=== PATIENT | female | born 2000 | race Caucasian/White ===

== ENCOUNTER 2023-11-11 11:16 | Inpatient (IN) ==
[2023-11-11] MEDS ORDERED: LIDOCAINE 1% LOCAL 20 ML VIAL INFIL PRN (12:32)
[2023-11-11] MEDS ORDERED: OXYTOCIN 30 UNITS/NSS 30 UNITS/500 ML BAG IV PRN (12:32)
[2023-11-11] MEDS ORDERED: ACETAMINOPHEN 325 MG TAB PO PRN (12:32)
[2023-11-11 13:12] LABS: Hematocrit (blood only) 37.8 % (37.0-47.0); Hemoglobin 12.7 g/dl (12.0-16.0); Mean Corpuscular Hemoglobin 28.7 pg (25.0-34.0); Mean Corpuscular Hgb Conc 33.6 g/dL (32.0-36.0); Mean Corpuscular Volume 85.3 fL (80.0-100.0); Mean Platelet Volume 11.3 fL (9.4-12.4); Platelet Count 228 K/uL (130-400); RDW Coefficient of Variation 13.6 % (11.5-14.5); RDW Standard Deviation 42.1 fL (36.4-46.3); Red Blood Count 4.43 M/uL (4.20-5.40); White Blood Count 10.54 K/ul (4.8-10.8)
[2023-11-11] MEDS: DINOPROSTONE 10 MG INSERT PV ONE (15:33)
[2023-11-11] MEDS ORDERED: BUTORPHANOL TARTRATE 2 MG/ML VIAL IV PRN (15:35)
--- NOTE | 2023-11-11 15:41 | History & Physical Report ---
Date of Service November 11, 2023 Assessment & Plan (1) Post-term , 40-42 weeks of gestation: Plan: 23-year-old G1, P0 at 40 weeks and 1 day gestation, scheduled induction of labor, Vital signs stable afebrile, heart rate reassuring, GBS negative, Cervix unfavorable, Cervidil is placed for cervical ripening, Discussed what to expect, All questions were answered. Admission and Anticipated Discharge Date Admission Date: November 11, 2023 History of Present Illness Primary Care Provider: Eran Dickinson DO Patient is a 23-year-old G1, P0 at 40 weeks and 1 day gestation who was scheduled for induction of labor at term, Patient feels well, no complaints. She denies contractions, leakage of fluid, vaginal bleeding. She reports good movements. She denies headaches, change in her vision, nausea vomiting, epigastric or right upper quadrant pain. Her has been uncomplicated. She is on 25 mcg of levothyroxine, iron and vitamins. She is GBS negative. Allergies Allergy/AdvReac Type Severity Reaction Status Date / Time No Known Allergies Allergy Verified 12/28/22 08:04 Home Medications Medication Instructions Recorded Confirmed Type levothyroxine 25 mcg tablet 25 mcg PO DAILY #30 tabs 07/05/23 11/11/23 Rx ferrous sulfate 325 mg (65 mg 325 mg PO BID 11/11/23 11/11/23 History iron) tablet (iron) vit no.95-ferrous 1 tab PO DAILY 11/11/23 11/11/23 History fumarate 28 mg-folic acid 800 mcg tablet () Patient History Medical History Anemia Hypothyroidism Surgical History History of wisdom tooth extraction Family History Grandfather (Maternal) Diabetes Uncle Myocardial infarction Prostate cancer Grandmother (Maternal) Myocardial infarction Hypothyroidism Mother Hypothyroidism Denies family history of Ovarian cancer Breast cancer Lung cancer Colorectal cancer Stroke Social History Smoking Status: Never smoker Second Hand Exposure: No; Do You Dip or Chew Tobacco: No; Hx Alcohol Use: No Hx Substance Use: No Preferred Language: Congolese Communication Ability: Effective Visual Impairment: Limited Hearing Ability: Normal Manager Field Sales Required: No Beliefs That Will Affect Care: None marital status: Current Living Situation: Spouse current occupational status: employed 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 Review of Systems as per Subjective / HPI Physical Exam Constitutional: WD/WN, vitals as above well developed, well nourished and comfortable Gastrointestinal (Abdomen): normal bowel sounds, soft, nontender, no hepatosplenomegaly (Gravid) Genitourinary: normal external appearance OB Exam Abdomen: + vertex Manual OB Exam: + cervical dilation fingertip, + cervical effacement 40% and + station high (Posterior) OB Exam Monitor Tracing: + external FHT monitor used and + category I Results & Data Vital Signs (Past 12 Hours) Vital Signs Temp Pulse Resp BP 11/11/23 15:16 36.7 C 81 16 127/84 11/11/23 11:43 113 H 116/79 11/11/23 11:43 36.6 C 20 11/11/23 11:40 20 11/11/23 11:40 36.6 C 20 Laboratory Results Lab Results 11/11/23 Range/Units 12:47 WBC 10.54 (4.8-10.8) K/ul RBC 4.43 (4.20-5.40) M/uL Hgb 12.7 (12.0-16.0) g/dl Hct 37.8 (37.0-47.0) % MCV 85.3 (80.0-100.0) fL MCH 28.7 (25.0-34.0) pg MCHC 33.6 (32.0-36.0) g/dL RDW Std Deviation 42.1 (36.4-46.3) fL RDW Coeff of Angel 13.6 (11.5-14.5) % Plt Count 228 (130-400) K/uL MPV 11.3 (9.4-12.4) fL
--- NOTE | 2023-11-11 16:57 | Obstetrical Progress Note ---
Date of Service November 11, 2023 Assessment & Plan Admission and Anticipated Discharge Date Admission Date: November 11, 2023 Subjective Patient is reevaluated. She feels well, eating her dinner. Feels mild tightening but no pain FHR categ I [place] mild irregular contractions, patient does not feel them all Continue to monitor closely. Results & Data Vital Signs (Past 12 Hours) Vital Signs Temp Pulse Resp BP 11/11/23 15:16 36.7 C 81 16 127/84 11/11/23 11:43 113 H 116/79 11/11/23 11:43 36.6 C 20 11/11/23 11:40 20 11/11/23 11:40 36.6 C 20
--- NOTE | 2023-11-12 00:37 | Obstetrical Progress Note ---
Date of Service November 12, 2023 Assessment & Plan Admission and Anticipated Discharge Date Admission Date: November 11, 2023 Subjective Patient is on monitor, smiling, has no complaints FHR categ I [place] ctxs q 2-3 min Patient feels them as mild tightening, not painful Plan to remove Cervidil at 03:30 AM and start PO cytotec per contraction pattern Continue to monitor Results & Data Vital Signs (Past 12 Hours) Vital Signs Temp Pulse Resp BP 11/11/23 21:10 36.4 C L 80 18 110/63 11/11/23 15:16 36.7 C 81 16 127/84
[2023-11-12] MEDS: FERROUS SULFATE 325 MG TAB PO SCH (03:03)
--- OUTSIDE RECORDS SUMMARY | 2023-11-12 04:34 | External Medical Summary | Summary of Care ---
Author Name Unknown Organization [facility] Address [address] [place] [address] Phone [phone] Care Team Providers Care Dial Brusher Name Role Phone TeenaEran Primary Care Provider [phone] Reason for Visit * Reason Comments Return Visit Encounter Details Date Type Department Care Team ([facility] st Contact Info) Description 11/01/2023 8:45 AM EDT Office Visit Gynecology/Obstetric [facility] [address] [facility] [place] [address] Alejandra Reeves MD [address] [facility] [place] [id number] 38 weeks gestation of *; Encounter for supervision of normal first in third trimester; Hypothyroidism affecting in third trimester; Elevated liver enzymes; Antepartum anemia complicating Allergies No known active allergiesdocumented as of this encounter (statuses as of 11/01/2023) Medications Medication Sig Dispensed Refills Start Date End Date Status Levothyroxine Sodium 25 MCG Oral Tablet (Levoxyl) Take 1 Tablet by mouth daily first thing in the morning. (at least 30 min prior to breakfast or other meds) 0 Active 6.75-0.2 MG Oral Tablet Take by mouth. 0 Active Ferrous Sulfate 325 (65 Fe) MG Oral Tablet (Feosol)Indications:A ntepartum anemia complicating Take 1 Tablet by mouth in the morning and 1 Tablet before bedtime. 60 Tablet 2 09/20/2023 Active documented as of this encounter (statuses as of 11/01/2023) Active Problems Problem Noted Date Diagnosed Date Antepartum anemia complicating 024 Overview: Start iron 27w6d Elevated liver enzymes 2023 Overview: Bile acids 2.1 on 06/23 Pt saw hepatology 06/28. Per MFM Ask A Doc 06/30/23, no additional recommendations with normal bile acids. Hepatology plans to repeat monthly LFTs Hepatic Panel Results: Results for orders placed or performed in visit on 06/23/23 HEPATIC FUNCTION PANEL Result Value Ref Range Albumin 4.1 3.8 - 5.0 g/dL AST 64 (H) 10 - 35 U/L Alkaline Phosphatase 64 35 - 130 U/L ALT 94 (H) 10 - 35 U/L Bilirubin, Total 0.5 <=1.2 mg/dL Bilirubin, Direct <0.2 0.0 - 0.3 mg/dL Protein 6.6 6.0 - 8.3 g/dL Hepatic Panel Results: Results for orders placed or performed in visit on 09/13/23 HEPATIC FUNCTION PANEL Result Value Ref Range Albumin 3.7 (L) 3.8 - 5.0 g/dL AST 19 10 - 35 U/L Alkaline Phosphatase 106 35 - 130 U/L ALT 16 10 - 35 U/L Bilirubin, Total 0.6 <=1.2 mg/dL Bilirubin, Direct <0.2 0.0 - 0.3 mg/dL Protein 5.9 (L) 6.0 - 8.3 g/dL Hypothyroidism affecting 03/31/2023 Overview: On Levoxyl 25 mcg daily, managed by PCP TSH q trimester TSH Results: Lab Results Component Value Date/Time TSH - [facility] 1.88 08/16/2023 09:08 AM TSH - [facility] 1.93 05/26/2023 10:03 AM TSH - [facility] 1.98 03/30/2023 11:46 AM Supervision of normal first 03/31/2023 Estimated Date of Delivery Comme nts Yes 11/10/2023 Based on Ultraso und documented as of this encounter (statuses as of 11/01/2023) Immunizations Name Administration Dates Next Due TDAP (age 10 and older)(Boostrix) 08/16/2023 documented as of this encounter Social History Tobacco Use Types Packs/Day Years Used Date Smoking Tobacco: Never Smokeless Tobacco: Never Alcohol Use Standard Drinks/Week Comments Not Currently 0 (1 standard drink = 0.6 oz pur e alcohol) PHQ-2 Answer Date Recorded PHQ Adult Total Score 0 09/27/2023 Hunger Vital Sign Answer Date Recorded Within the past 12 months, y ou worried that your food would run out before you got the money to buy more. Never true 06/09/20 23 Within the past 12 months, t he food you bought just didn't last and you didn't have money to get more. Never true 06/09/2023 [place] Depression Scale Answer Date Recorded [place] Depression Scale Total 3 09/27/2023 The thought of harming myself has occurred to me . Never 09/27/2023 Estimated Date of Delivery Comme nts Yes 11/10/2023 Based on Ultraso und Sex and Gender Information Value Date Recorded Sex Assigned at Female 03/25/2023 11:22 AM EDT Gender Identity Female 03/25/2023 11:22 AM EDT Sexual Orientation Straight 03/25/2023 11 :22 AM EDT Job Start Date Occupation Industry Not on file Not on file Not on file documented as of this encounter Last Filed Vital Signs Vital Sign Reading Time Taken Comments Blood Pressure 118/86 11/01/2023 8:36 AM EDT Pulse - - Temperature - - Respiratory Rate - - Oxygen Saturation - - Inhaled Oxygen Concentration - - Weight 80.7 kg (178 lb) 11/01/2023 8:36 AM EDT Height 162.6 cm (5' 4") 11/01/2023 8:36 AM EDT Body Mass Index 30.55 11/01/2023 8:36 AM EDT documented in this encounter Progress Notes * Alejandra Reeves MD - 11/01/2023 8:45 AM EDT Patient is 23 year old at 38 5/7 weeks who presents for ANGEL visit Denies contractions, leaking of fluid, or vaginal bleeding. Noted good movement. +cramping, +BH Denies headache, blurry vision, RUQ or epigastric pain. Problem list reviewed BP 118/86 | Ht 1.626 m (5' 4") | Wt 80.7 kg (178 lb) | LMP 01/27/2023 (Exact Date) | BMI 30.55 kg/m | BSA 1.91 m FH: 38 FHT: 135 (high on abdomen) Unsure position with Leopolds Plan: Labor and preeclampsia warnings reviewed Flu vaccine already received Recommend delivery by 42 weeks-would like induction after RASTA. US for position RTC 1 weeks V Leandro HANLEY PhD documented in this encounter Nursing Notes * Jennifer Fry LPN - 11/01/2023 8:40 AM EDT 38w5d Popping sensation under right angel area over the weekend. documented in this encounter Plan of Treatment Upcoming Encounters Date Type Department Care Team (Late st Contact Info) Description 11/01/2023 9:15 AM EDT Imaging Radiology [facility] 2nd Floor, [place] [address] [place] [id number] 38 weeks gestation of 11/08/2023 8:45 AM EDT Office Visit Gynecology/Obstetric s [facility] [address] [place] [address] Lalo Morin MD [address] [place] [address] Pending Results Name Type Priority Associated Diagnoses Date /Time US PREG LIMITED 1 OR MORE FETUSES Medical Imaging Routine 38 weeks gestation of 11/01/2023 9:00 AM EDT Scheduled Orders Name Type Priority Associated Diagnoses Orde r Schedule US PREG LIMITED 1 OR MORE FETUSES Medical Imaging Routine 38 weeks gestation of Expected: 11/01/2023, Expires: 11/30/2024 Health Maintenance Due Date Last Done Comments GARDASIL-HPV IMMUNIZATION SERIES (1 - 3-dose series) 2013 Hepatitis B (1 of 3 - 19+ 3-dose series) 2017 COVID-19 Vaccine ( season) 2023 11/05/2021, 12/12/2020, 11/21/2020 Influenza Vaccine (FLU shot) (Season Ended) 2024 Depression Screening 09/26/2024 09/27/2023 TSH 10/17/2024 10/18/2023, 07/27, 05/26/2023, Additional history exists Pap Smear 03/30/2026 03/30/2023 DTaP,Tdap,and Td Vaccines (2 - Td or Tdap) 08/16/2033 08/16/2023 Gonorrhea / Chlamydia Screen Discontinued 03/30/2023 MENINGOCOCCAL (MENACTRA/MENVEO) Aged Out No longer eligible based on patient's age to complete this topic Pneumococcal Vaccine: Pediatrics (0 to 5 Years) and At-Risk Patients (6 to 64 Years) Aged Out No longer eligible based on patient's age to complete this topic documented as of this encounter Medical Devices Not on filedocumented as of this encounter Visit Diagnoses Diagnosis 38 weeks gestation of - Primary state, incidental Encounter for supervision of normal first in third trimester Supervision of normal first Hypothyroidism affecting in third trimester Elevated liver enzymes Nonspecific elevation of levels of transaminase or lactic acid dehydrogenase (LDH) Antepartum anemia complicating Anemia, antepartum 38 weeks gestation of state, incidental documented in this encounter Care Teams Dial Brusher Relationship Specialty Start Date End Date Eran Dickinson DO [address] [place] [address] PCP - General Family Medicine 12/28/22 documented as of this encounter
--- OUTSIDE RECORDS SUMMARY | 2023-11-12 04:34 | External Medical Summary | Summary of Care ---
Author Name Unknown Organization [facility] Address [address] [place] [address] Phone [phone] Care Team Providers Care Starch Factory Laborer Name Role Phone TeenaEran Primary Care Provider [phone] Reason for Visit * Reason Comments Return Visit Encounter Details Date Type Department Care Team ([facility] st Contact Info) Description 10/25/2023 8:45 AM EDT Office Visit Gynecology/Obstetric s Nory Maier [address] [place] [address] Estela Sue CRNP [address] [facility] [address] Encounter for supervision of normal first in third trimester*; Hypothyroidism affecting in third trimester; Elevated liver enzymes; Antepartum anemia complicating Allergies No known active allergiesdocumented as of this encounter (statuses as of 10/25/2023) Medications Medication Sig Dispensed Refills Start Date [...] as of this encounter (statuses as of 10/25/2023) Active Problems Problem Noted Date Diagnosed Date [...] as of this encounter (statuses as of 10/25/2023) Immunizations Name Administration Dates Next Due TDAP [...] money to get more. Never true 06/09/2023 [place] Depression Scale Answer Date Recorded [place] Depression Scale Total 3 09/27/2023 The thought [...] Sign Reading Time Taken Comments Blood Pressure 104/68 10/25/2023 8:37 AM EDT Pulse - - Temperature - - Respiratory Rate - - Oxygen Saturation - - Inhaled Oxygen Concentration - - Weight 80.3 kg (177 lb) 10/25/2023 8:37 AM EDT Height - - Body Mass Index 30.38 09/13/2023 8:51 AM EST documented in this encounter Progress Notes * Estela Sue CRNP - 10/25/2023 8:40 AM EDT 37w5d Doing well, baby is active. Denies regular contractions, leaking/bleeding. GBS swab negative. 1 week return NORMAN Machado * Gaye Greer LPN - 10/25/2023 8:37 AM EDT 37w5d Denies vaginal bleeding/rom + movement No new concerns documented in this encounter Plan of Treatment Upcoming Encounters Date Type Department Care Team (Late st Contact Info) Description 11/01/2023 8:45 AM EDT Office Visit Gynecology/Obstetrics [facility] [address] [facility] [place] [address] Alejandra Reeves MD [address] [place] [address] 11/08/2023 8:45 AM EDT Office Visit Gynecology/Obstetrics [facility] [address] [place] [address] Lalo Morin MD [address] [facility] [address] Health Maintenance Due Date Last Done Comments GARDASIL-HPV IMMUNIZATION SERIES (1 - 3-dose series) 2013 Hepatitis B (1 of 3 - 19+ 3-dose series) 2017 COVID-19 Vaccine (2022- season) 2023 11/05/2021, 12/12/2020, 11/21/2020 Influenza Vaccine [...] as of this encounter Visit Diagnoses Diagnosis Encounter for supervision of normal first in third trimester- Primary Supervision of normal first Hypothyroidism affecting in third trimester Elevated liver enzymes Nonspecific elevation of levels of transaminase or lactic acid dehydrogenase (LDH) Antepartum anemia complicating Anemia, antepartum documented in this encounter Care Teams Starch Factory Laborer Relationship Specialty Start Date End Date Eran Dickinson DO [address] [place] [address] PCP - General Family Medicine 12/28/22 documented as of this encounter
--- OUTSIDE RECORDS SUMMARY | 2023-11-12 04:34 | External Medical Summary ---
Author Name Unknown Address Unknown Organization [id number]:[facility] [address] [place] [address] Laboratory Report Ordering Provider Test Date Status REAL HERNANDEZ 10/18/2023 08:52:47 Final Observation Date Value Abnormality Reference (Units ) Status Albumin 10/18/2023 08:52:47 3.7 Below low normal 3.8-5.0 (g/dL) Final AST (Aspartate aminotransferase) 10/18/2023 08:52:47 19 10-35 (U/L) Final Alk Phos 10/18/2023 08:52:47 169 Above high normal 35-130 (U/L) Final ALT (Alanine aminotransferase) 10/18/2023 08:52:47 12 10-35 (U/L) Final Bilirubin, Total 10/18/2023 08:52:47 0.8 <=1.2 (mg/dL) Final Bilirubin, Direct 10/18/2023 08:52:47 <0.2 0.0-0.3 (mg/dL) Final Protein 10/18/2023 08:52:47 6.0 6.0-8.3 (g/dL) Final Performing Location [facility] [address] - [address] [place] [address]
--- OUTSIDE RECORDS SUMMARY | 2023-11-12 04:34 | External Medical Summary ---
Author Name Unknown Address Unknown Organization [id number]:[facility] - [facility] [address] [facility] [address] [facility] [address] Laboratory Report Ordering Provider Test Date Status REAL HERNANDEZ 10/18/2023 08:57:47 Final Observation Date Value Abnormality Reference (Units ) Status Streptococcus agalactiae DNA [Presence] in Specimen by GÓMEZ with probe detection 10/18/2023 08:57:47 Negative Negative Final No Group B Streptococcus det ected by culture-enhanced PCR (amplified probe).
The collection of vaginal/rectal swab specimen combinations (FDA approved specimen type) is optimal for the detection of Group B Streptococcus. Single source collection (vaginal only or rectal only) or alternate specimen sources may lead to false negative results. Performing Location [facility] - [address] [place] [address]
--- OUTSIDE RECORDS SUMMARY | 2023-11-12 04:34 | External Medical Summary | Summary of Care ---
Author Name Unknown Organization [facility] Address [address] [place] [address] Phone [phone] Care Team Providers Care Vp Client Services Name Role Phone Eran Dickinson Primary Care Provider [phone] Reason for Visit * Reason Comments Outpatient Testing Encounter Details Date Type Department Care Team ([facility] st Contact Info) Description 10/18/2023 9:40 AM EDT Laboratory Laboratory, [facility] [address] [place] [id number] [facility] [address] [place] [address] Elevated liver enzymes Allergies No known active allergiesdocumented as of this encounter (statuses as of 10/18/2023) Medications Medication Sig Dispensed Refills Start Date [...] as of this encounter (statuses as of 10/18/2023) Active Problems Problem Noted Date Diagnosed Date [...] as of this encounter (statuses as of 10/18/2023) Immunizations Name Administration Dates Next Due TDAP [...] money to get more. Never true 06/09/2023 [place] Depression Scale Answer Date Recorded [place] Depression Scale Total 3 09/27/2023 The thought [...] on file documented as of this encounter Plan of Treatment Upcoming Encounters Date Type Department Care Team (Late st Contact Info) Description 10/25/2023 8:45 AM EDT Office Visit Gynecology/Obstetrics [facility] [address] [place] [address] Estela Sue CRNP [address] [place] [address] 11/01/2023 8:45 AM EDT Office Visit Gynecology/Obstetrics [facility] [address] [place] [address] Alejandra Reeves MD [address] [place] [address] 11/08/2023 8:45 AM EDT Office Visit Gynecology/Obstetrics [facility] [address] [place] [address] Lalo Morin MD [address] [place] [address] Pending Results Name Type Priority Associated Diagnoses Date /Time TSH WITH FREE T4 IF INDICATED Lab Routine 10/18/2023 8:52 AM EDT HEPATIC FUNCTION PANEL Lab Routine Elevated liver enzymes 10/18/2023 8:52 AM EDT Health Maintenance Due Date Last Done Comments GARDASIL-HPV IMMUNIZATION SERIES (1 - 3-dose series) 2013 Hepatitis B (1 of 3 - 19+ 3-dose series) 2017 COVID-19 Vaccine (4 - 2022-2 4 season) 2023 11/05/2021, 12/12/2020, 11/21/2020 Influenza Vaccine (FLU shot) (#1) 2023 TSH 08/16/2024 08/16/2023, 05/26/2023, 03/30/2023 Depression Screening 09/26/2024 09/27/2023 Pap Smear 03/30/2026 03/30/2023 DTaP,Tdap,and Td Vaccines [...] as of this encounter Visit Diagnoses Diagnosis Elevated liver enzymes Nonspecific elevation of levels of transaminase or lactic acid dehydrogenase (LDH) documented in this encounter Care Teams Vp Client Services Relationship Specialty Start Date End Date Eran Dickinson DO [address] [facility] [place] [address] PCP - General Family Medicine 12/28/22 documented as of this encounter
--- OUTSIDE RECORDS SUMMARY | 2023-11-12 04:34 | External Medical Summary | Summary of Care ---
Author Name Unknown Organization [facility] Address [address] [place] [address] Phone [phone] Care Team Providers Care Shovel Handle Assembler Name Role Phone TeenaEran Primary Care Provider Reason for Visit * Reason Comments Return Visit Encounter Details Date Type Department Care Team ([facility] st Contact Info) Description 10/18/2023 8:30 AM EDT Office Visit Gynecology/Obstetric s Nory Maier [address] [place] [address] Estela Sue CRNP [address] [facility] [place] [address] Encounter for supervision of normal first in [...] money to get more. Never true 06/09/2023 [place] Depression Scale Answer Date Recorded [place] Depression Scale Total 3 09/27/2023 The thought [...] Sign Reading Time Taken Comments Blood Pressure 108/70 10/18/2023 8:26 AM EDT Pulse - - Temperature - - Respiratory Rate - - Oxygen Saturation - - Inhaled Oxygen Concentration - - Weight 79.1 kg (174 lb 6.4 oz) 10/18/2023 8:26 A M EDT Height - - Body Mass Index 29.94 09/13/2023 8:51 AM EST documented in this encounter Progress Notes * Estela Sue CRNP - 10/18/2023 8:37 AM EDT 36w5d Baby active, reviewed FKC. No regular ctx, leaking/bleeding. Discussed induction by 42 weeks. Will recheck LFTs today, last done a month ago. GBS collected, 1 week return Subwarehouse Supervisor Documentation Provider requested personal lines appraiser. Name of personal lines appraiser: NORMAN Mendoza LPN * Gaye Greer LPN - 10/18/2023 8:26 AM EDT 36w5d Denies vaginal bleeding/rom + movement documented in this encounter Plan of Treatment Upcoming Encounters Date Type Department Care Team (Late st Contact Info) Description 10/18/2023 9:40 AM EDT [facility] [address] [place] [id number] MaierMarie demarco [address] [place] [address] Elevated liver enzymes 10/25/2023 8:45 AM EDT Office Visit Gynecology/Obstetric s Kirkfady Maier [address] [place] [address] Estela Sue CRNP [address] [place] [address] 11/01/2023 8:45 AM EDT Office Visit Gynecology/Obstetric s Nory Bustoss [address] [place] [address] Alejandra Reeves MD [address] [place] [address] [place] [address] 11/08/2023 8:45 AM EDT Office Visit Gynecology/Obstetric s Nory Bustoss [address] [place] [address] Lalo Morin MD [address] [place] [address] Pending Results Name Type Priority Associated Diagnoses Date /Time GROUP B STREP CULTURE/PCR Lab Routine Encounter for supervision of normal first in third trimester 10/18/2023 8:57 AM EDT HEPATIC FUNCTION PANEL Lab Routine Elevated liver enzymes 10/18/2023 8:52 AM EDT Scheduled Orders Name Type Priority Associated Diagnoses Orde r Schedule HEPATIC FUNCTION PANEL Lab Routine Elevated liver enzymes Expected: 10/18/2023, Expires: 10/17/2024 Health Maintenance Due Date Last Done Comments [...] dehydrogenase (LDH) Antepartum anemia complicating Anemia, antepartum Elevated liver enzymes Nonspecific elevation of levels of transaminase or lactic acid dehydrogenase (LDH) documented in this encounter Care Teams Shovel Handle Assembler Relationship Specialty Start Date End Date Eran Dickinson DO [address] [place] [address] PCP - General Family Medicine 12/28/22 documented as of this encounter
--- OUTSIDE RECORDS SUMMARY | 2023-11-12 04:34 | External Medical Summary | Summary of Care ---
Author Name Unknown Organization [facility] Address [address] [place] [address] Phone [phone] Care Team Providers Care Operations Label Clerk Name Role Phone Eran Dickinson Primary Care Provider [phone] Encounter Details Date Type Department Care Team ([facility] Contact Info) Description 11/01/2023 Telephone Gynecology/Obstetrics, [address] [place] [address] Lalo Morin MD [address] [place] [address] Allergies No known active allergiesdocumented as of [...] money to get more. Never true 06/09/2023 [place] Depression Scale Answer Date Recorded [place] Depression Scale Total 3 09/27/2023 The thought [...] on file documented as of this encounter Miscellaneous Notes * Telephone Encounter - Nora Murrell RN - 11/01/2023 10:21 AM EDT T/C from pt stating that she is scheduled for IOL at [facility] on 11/11/2023. Pt asking if there is any availability for IOL sooner. Please call pt to assist. Reagan'nilam pt. documented in this encounter Plan of Treatment Upcoming Encounters Date Type Department Care Team (Late st Contact Info) Description 11/08/2023 8:45 AM EDT Office Visit Gynecology/Obstetrics Nory Maier [address] [place] [address] Lalo Morin MD [address] [place] [address] Health Maintenance Due Date Last Done Comments GARDASIL-HPV IMMUNIZATION SERIES (1 - 3-dose series) 2013 Hepatitis B (1 of 3 - 19+ 3-dose series) 2017 COVID-19 Vaccine (2022-24 season) 2023 11/05/2021, 12/12/2020, 11/21/2020 Influenza Vaccine [...] Not on filedocumented as of this encounter Care Teams Operations Label Clerk Relationship Specialty Start Date End Date Eran Dickinson DO [address] [place] [address] PCP - General Family Medicine 12/28/22 documented as of this encounter
--- OUTSIDE RECORDS SUMMARY | 2023-11-12 04:34 | External Medical Summary | Summary of Care ---
Author Name Unknown Organization [facility] Address [address] [place] [address] Phone [phone] Care Team Providers Care Broach Operator Name Role Phone TeenaEran Primary Care Provider [phone] Reason for Visit * Reason Comments Return Visit Encounter Details Date Type Department Care Team (Latest Contact Info) Description 11/08/2023 8:45 AM EDT Office Visit Gynecology/Obstetri [facility] [address] [place] [address] Lalo Morin MD [address] [place] [address] Hypothyroidism affecting in third trimester*; Encounter for supervision of normal first in third trimester; Elevated liver enzymes; Antepartum anemia complicating Allergies No known active allergiesdocumented as of this encounter (statuses as of 11/08/2023) Medications Medication Sig Dispensed Refills Start Date [...] as of this encounter (statuses as of 11/08/2023) Active Problems Problem Noted Date Diagnosed Date [...] as of this encounter (statuses as of 11/08/2023) Immunizations Name Administration Dates Next Due TDAP [...] money to get more. Never true 06/09/2023 [place] Depression Scale Answer Date Recorded [place] Depression Scale Total 3 09/27/2023 The thought [...] Sign Reading Time Taken Comments Blood Pressure 110/78 11/08/2023 8:40 AM EDT Pulse - - Temperature - - Respiratory Rate - - Oxygen Saturation - - Inhaled Oxygen Concentration - - Weight 79.8 kg (176 lb) 11/08/2023 8:40 AM EDT Height 162.6 cm (5' 4") 11/08/2023 8:40 AM EDT Body Mass Index 30.21 11/08/2023 8:40 AM EDT documented in this encounter Progress Notes * Lalo Morin MD - 11/08/2023 1:47 PM EDT Pt doing well No complaints documented in this encounter Nursing Notes * Jennifer Fry LPN - 11/08/2023 8:43 AM EDT 39w5d IOL 11/10, baby vertex on US 10/31. Denies concerns today. documented in this encounter Plan of Treatment Health Maintenance Due Date Last Done Comments [...] as of this encounter Visit Diagnoses Diagnosis Hypothyroidism affecting in third trimester- Primary Encounter for supervision of normal first in third trimester Supervision of normal first Elevated liver enzymes Nonspecific elevation of levels of transaminase or lactic acid dehydrogenase (LDH) Antepartum anemia complicating Anemia, antepartum documented in this encounter Care Teams Broach Operator Relationship Specialty Start Date End Date Eran Dickinson DO [address] [facility] [place] [address] PCP - General Family Medicine 12/28/22 documented as of this encounter
--- OUTSIDE RECORDS SUMMARY | 2023-11-12 04:34 | External Medical Summary | Summary of Care ---
Author Name Unknown Organization [facility] Address [address] [place] [address] Phone [phone] Care Team Providers Care Airport Location Manager Name Role Phone TeenaEran Primary Care Provider [phone] Reason for Visit * Reason Comments Return Visit Encounter Details Date Type Department Care Team ([facility] st Contact Info) Description 11/01/2023 8:45 AM EDT Office Visit Gynecology/Obstetric [facility] [address] [facility] [place] [address] Alejandra Reeves MD [address] [facility] [place] [id number] 38 weeks gestation of *; Encounter for [...] money to get more. Never true 06/09/2023 [place] Depression Scale Answer Date Recorded [place] Depression Scale Total 3 09/27/2023 The thought [...] Description 11/01/2023 9:15 AM EDT Imaging Radiology [facility] 2nd [facility] [address] [facility] [place] [address] 11/08/2023 8:45 AM EDT Office Visit Gynecology/Obstetrics [facility] [address] [facility] [place] [address] Lalo Morin MD [address] [facility] [place] [address] Scheduled Orders Name Type Priority Associated Diagnoses [...] antepartum documented in this encounter Care Teams Airport Location Manager Relationship Specialty Start Date End Date Eran Dickinson DO [address] [place] [address] PCP - General Family Medicine 12/28/22 documented as of this encounter
--- OUTSIDE RECORDS SUMMARY | 2023-11-12 04:34 | External Medical Summary | Summary of Care ---
Author Name Unknown Organization [facility] Address [address] [place] [address] Phone [phone] Care Team Providers Care Screen Printing Machine Operator Name Role Phone Eran Dickinson Primary Care Provider [phone] Encounter Details Date Type Department Care Team ([facility] Contact Info) Description 11/01/2023 Telephone Gynecology/Obstetrics, [address] [place] [address] Lalo Morin MD [address] [facility] [place] [address] Allergies No known active allergiesdocumented as of [...] money to get more. Never true 06/09/2023 [place] Depression Scale Answer Date Recorded [place] Depression Scale Total 3 09/27/2023 The thought [...] encounter Miscellaneous Notes * Telephone Encounter - Michelle Huff RN - 11/01/2023 11:11 AM EDT I called L&D and they said the soonest they would have would be the day before 11/09. Spoke withpt. She desires to call her and see if they want to change to there. I advised to pt that this may not be open when we call back and that we still have her on for 11/10. Pt aware and still desires to call back with decision. * Telephone Encounter - Nora Murrell RN - 11/01/2023 10:21 AM EDT T/C from pt stating that she is scheduled for IOL at [facility] on 11/11/2023. Pt asking if there is any availability for IOL sooner. Please call pt to assist. Reagan's pt. documented in this encounter Plan of Treatment Upcoming Encounters Date Type Department Care Team (Late st Contact Info) Description 11/08/2023 8:45 AM EDT Office Visit Gynecology/Obstetrics Nory Maier [address] [place] [address] Lalo Morin MD [address] [place] [address] Health Maintenance Due Date Last Done Comments [...] filedocumented as of this encounter Care Teams Screen Printing Machine Operator Relationship Specialty Start Date End Date Eran Dickinson DO [address] [facility] [place] [address] PCP - General Family Medicine 12/28/22 documented as of this encounter
--- OUTSIDE RECORDS SUMMARY | 2023-11-12 04:34 | External Medical Summary ---
Author Name Unknown Address Unknown Organization [id number]:LABORATORY [facility] - [address] [place] [address] Laboratory Report Ordering Provider Test Date Status THU ASKEW 10/18/2023 08:52:47 Final Observation Date Value Abnormality Reference (Units ) Status TSH 10/18/2023 08:52:47 1.72 0.27-4.20 (uIU/mL) Final Performing Location LABORATORY C - [address] [place] [address]
--- OUTSIDE RECORDS SUMMARY | 2023-11-12 04:34 | External Medical Summary | Summary of Care ---
Author Name Unknown Organization [facility] Address [address] [place] [address] Phone [phone] Care Team Providers Care Community Engagement Manager Name Role Phone TeenaEran Primary Care Provider [phone] Reason for Visit * Reason Comments Return Visit Encounter Details Date Type Department Care Team ([facility] st Contact Info) Description 10/18/2023 8:30 AM EDT Office Visit Gynecology/Obstetric s Nory Maier [address] [place] [address] Estela Sue CRNP [address] [facility] [place] [address] Encounter for supervision of normal first in [...] money to get more. Never true 06/09/2023 [place] Depression Scale Answer Date Recorded [place] Depression Scale Total 3 09/27/2023 The thought [...] month ago. GBS collected, 1 week return Broadcast Checker Documentation Provider requested supervisor coffee. Name of supervisor coffee: NORMAN Mendoza LPN * Gaye Greer LPN - 10/18/2023 8:26 AM EDT 36w5d Denies vaginal bleeding/rom + movement documented in this encounter Plan of Treatment Upcoming Encounters Date Type Department Care Team (Late st Contact Info) Description 10/18/2023 9:40 AM EDT Laboratory Laboratory, N[facility] [address] [place] [phone] MaierMarie demarco [address] [place] [address] Elevated liver enzymes 10/25/2023 8:45 AM EDT Office Visit Gynecology/Obstetric Kirkfady Maier [address] [place] [address] Estela Sue CRNP [address] [place] [address] 11/01/2023 8:45 AM EDT Office Visit Gynecology/Obstetric s Nory Bustoss [address] [place] [address] Alejandra Reeves MD [address] [place] [address] [place] [address] 11/08/2023 8:45 AM EDT Office Visit Gynecology/Obstetric nilam Bustoss [address] [place] [address] Lalo Morin MD [address] [place] [address] Pending Results Name Type Priority Associated Diagnoses Date /Time HEPATIC FUNCTION PANEL Lab Routine Elevated liver enzymes 10/18/2023 8:52 AM EDT Scheduled Orders Name Type Priority Associated Diagnoses Orde r Schedule GROUP B STREP CULTURE/PCR Lab Routine Encounter for supervision of normal first in third trimester Ordered: 10/18/2023 HEPATIC FUNCTION PANEL Lab Routine Elevated liver [...] (LDH) documented in this encounter Care Teams Community Engagement Manager Relationship Specialty Start Date End Date Eran Dickinson DO [address] [place] [address] PCP - General Family Medicine 12/28/22 documented as of this encounter
--- OUTSIDE RECORDS SUMMARY | 2023-11-12 04:35 | External Medical Summary | Summary of Care ---
Author Name Unknown Organization [facility] Address [address] [place] [address] Phone [phone] Care Team Providers Care Retort Kiln Burner Name Role Phone TeenaEran Primary Care Provider [phone] Reason for Visit * Reason Onset Date Comments Test Results 08/17/2023 Encounter Details Date Type Department Care Team ([facility] Contact Info) Description 08/17/2023 Telephone Gynecology/Obstetrics [facility] [address] [facility] [place] [address] Estela Sue CRNP [address] [facility] [address] Test Results Allergies No known active allergiesdocumented as of this encounter (statuses as of 09/20/2023) Medications Medication Sig Dispensed Refills Start Date [...] and 1 Tablet before bedtime. 60 Tablet 3 08/17/2023 Active documented as of this encounter (statuses as of 09/20/2023) Active Problems Problem Noted Date Diagnosed Date [...] mg/dL Protein 6.6 6.0 - 8.3 g/dL Hypothyroidism affecting 03/31/2023 Overview: On Levoxyl 25 mcg daily, managed by PCP TSH q trimester TSH Results: Lab Results Component Value Date/Time TSH - [facility] 1.93 05/26/2023 10:03 AM TSH - [facility] 1.98 03/30/2023 11:46 AM Supervision of normal first 03/31/2023 Estimated Date of Delivery Comme nts Yes 11/10/2023 Based on Ultraso und documented as of this encounter (statuses as of 09/20/2023) Immunizations Name Administration Dates Next Due TDAP (age 10 and older)(Boostrix) 08/16/2023 documented as of this encounter Social History Tobacco Use Types Packs/Day Years Used Date Smoking Tobacco: Never Smokeless Tobacco: Never Alcohol Use Standard Drinks/Week Comments Not Currently 0 (1 standard drink = 0.6 oz pur e alcohol) Hunger Vital Sign Answer Date Recorded Within the past 12 months, y ou worried that your food would run out before you got the money to buy more. Never true 06/09/20 Within the past 12 months, t he food you bought just didn't last and you didn't have money to get more. Never true 06/09/2023 [place] Depression Scale Answer Date Recorded [place] Depression Scale Total 1 08/04/2023 The thought of harming myself has occurred to me . Never 08/04/2023 Estimated Date of Delivery Comme nts Yes [...] as of this encounter Miscellaneous Notes * Addendum Note - Rain Hylton CPhT - 09/20/2023 9:40 AM ESTAddended by: RAIN HYLTON on: 09/20/2023 09:40 AM Modules accepted: Orders * Telephone Encounter - Rain Hylton CPhT - 09/20/2023 9:40 AM EST Please [facility]route [facility] to [facility] [address] [place] [address] [place]. Pending Prescriptions: Disp Refills Ferrous Sulfate 325 (65 Fe) MG Oral Table*60 Tab*2 Sig: Take 1 Tablet by mouth in the morning and 1 Tablet before bedtime. Last Visit: 08/16/2023 (in office), Visit date not found (telemedicine) 09/27/2023 If no future appointments scheduled, and last appointment is greater than a year ago, please schedule patient for a follow-up appointment Last date the medication was ordered: 08/17/2023 Patient Phone Numbers Labs: Lab Results Component Value Date/Time CREAT 0.5 08/16/2023 09:08 AM TSH 1.88 08/16/2023 09:08 AM ALT 16 09/13/2023 09:32 AM * Telephone Encounter - Sandhya Malin LPN - 08/17/2023 12:22 PM EST Patient notified. Agreeable. * Telephone Encounter - Estela Sue CRNP - 08/17/2023 12:08 PM EST +anemia on CBC. Sending iron supplement to her pharmacy, take at least 1 hr apart from vitamin and food w/dairy. Can use OTC colace if constipation occurs. Will recheck CBC in 4 weeks to make sure it improves. Elevated 1 hr GTT, needs 3 hr testing. NORMAN Machado documented in this encounter Plan of Treatment Upcoming Encounters Date Type Department Care Team (Late st Contact Info) Description 09/27/2023 8:30 AM EST Office Visit Gynecology/Obstetrics [facility] [address] [place] [address] Estela Sue CRNP [address] [place] [address] 10/11/2023 8:30 AM EDT Office Visit Gynecology/Obstetrics [facility] [address] [place] [address] Caitlyn Marie, TORI, CNM [address] [place] [address] [place] [address] 10/18/2023 8:30 AM EDT Office [facility] [address] [place] [address] Estela Sue CRNP [address] [place] [address] 10/25/2023 8:45 AM EDT Office Visit Gynecology/Obstetrics [facility] [address] [place] [address] Estela Sue CRNP [address] [place] [address] 11/01/2023 8:45 AM EDT Office Visit Gynecology/Obstetrics [facility] [address] [facility] [place] [address] Alejandra Reeves MD [address] [place], [place] [address] [address] 11/08/2023 8:45 AM EDT Office Visit Gynecology/Obstetrics [facility] [address] [facility] [place] [address] Lalo Morin MD [address] [place] [address] Health Maintenance Due Date Last Done Comments Depression Screening 2010 GARDASIL-HPV IMMUNIZATION SERIES (1 - 3-dose series) 2013 Hepatitis B (1 of 3 - 19+ 3-dose series) 2017 COVID-19 Vaccine (4 - 2022-2 4 season) 2023 11/05/2021, 12/12/2020, 11/21/2020 Influenza Vaccine (FLU shot) (#1) 2023 TSH 08/16/2024 08/16/2023, 05/26/2023, 03/30/2023 Pap Smear 03/30/2026 03/30/2023 DTaP,Tdap,and Td Vaccines [...] as of this encounter Visit Diagnoses Diagnosis Antepartum anemia complicating - Primary Anemia, antepartum Elevated glucose tolerance test Impaired glucose tolerance test documented in this encounter Care Teams Retort Kiln Burner Relationship Specialty Start Date End Date Eran Dickinson DO [address] [place] [address] PCP - General Family Medicine 12/28/22 documented as of this encounter
--- OUTSIDE RECORDS SUMMARY | 2023-11-12 04:35 | External Medical Summary ---
Author Name Unknown Address Unknown Organization [id number]:LABORATORY [facility] 57[facility] - [address] [place] [address] Laboratory Report Ordering Provider Test Date Status HERNAN LOPEZ 09/13/2023 09:32:02 Final Observation Date Value Abnormality Reference (Units ) Status WBC, Total 09/13/2023 09:32:02 11.82 Above high normal 4 .00-10.80 (K/uL) Final RBC 09/13/2023 09:32:02 4.12 3.85-5.15 (M/uL) Final Hemoglobin 09/13/2023 09:32:02 11.9 Below low normal 12 .0-15.3 (g/dL) Final Anemia reflex testing trigge rs on a HGB < 12.0 for Females and HGB < 13.0 for Males in accordance with the WHO Anemia Guidelines
Anemia reflex testing triggers on a HGB < 12.0 for Females and HGB < 13.0 for Males in accordance with the WHO Anemia Guidelines HCT 09/13/2023 09:32:02 36.4 36.0-45.2 (%) Final MCV 09/13/2023 09:32:02 88.3 81.5-97.5 (fL) Final MCH 09/13/2023 09:32:02 28.9 27.0-34.0 (pg) Final MCHC 09/13/2023 09:32:02 32.7 32.0-36.0 (g/dL) Final RDW 09/13/2023 09:32:02 13.4 11.5-15.5 (%) Final Platelets 09/13/2023 09:32:02 266 140-400 (K /uL) Final MPV 09/13/2023 09:32:02 10.6 6.6-11.1 ( fL) Final Performing Location LABORATORY [facility] 0 - [address] [place] [address]
--- OUTSIDE RECORDS SUMMARY | 2023-11-12 04:35 | External Medical Summary ---
Author Name Unknown Address Unknown Organization [id number]:LABORATORY [facility] 57[facility] - [address] [place] [address] Laboratory Report Ordering Provider Test Date Status REAL HERNANDEZ 09/02/2023 12:40:01 Final Observation Date Value Abnormality Reference (Units ) Status Glucose [Mass/volume] in Serum or Plasma --3 hours post dose glucose 09/02/2023 12:40:01 139 70-139 (mg/dL) Final Performing Location LABORATORY [place] 57[address] 0 - [address] [place] [address]
--- OUTSIDE RECORDS SUMMARY | 2023-11-12 04:35 | External Medical Summary | Summary of Care ---
Author Name Unknown Organization [facility] Address [address] [place] [address] Phone [phone] Care Team Providers Care De Icer Element Winder Name Role Phone Teena Eran MELENDREZ Primary Care Provider [phone] Reason for Visit * Reason Comments Outpatient Testing Encounter Details Date Type Department Care Team (Late st Contact Info) Description 09/13/2023 9:40 AM EST Laboratory Laboratory, [facility] [address] [place] [phone] [facility] [address] [place] [address] Antepartum anemia complicating ; Elevated liver enzymes Allergies No known active allergiesdocumented as of this encounter (statuses as of 09/13/2023) Medications Medication Sig Dispensed Refills Start Date [...] as of this encounter (statuses as of 09/13/2023) Active Problems Problem Noted Date Diagnosed Date [...] as of this encounter (statuses as of 09/13/2023) Immunizations Name Administration Dates Next Due TDAP [...] money to get more. Never true 06/09/2023 [place] Depression Scale Answer Date Recorded [place] Depression Scale Total 1 08/04/2023 The thought [...] 09/27/2023 8:30 AM EST Office Visit Gynecology/Obstetrics [facility] [address] [place] [address] Estela Sue CRNP [address] [place] [address] 10/11/2023 8:30 AM EDT Office Visit Gynecology/Obstetrics [facility] [address] [place] [address] Caitlyn Marei, DNP, CNM [address] [facility] [place] [address] 10/18/2023 8:30 AM EDT Office Visit Gynecology/Obstetrics [facility] [address] [place] [address] Estela Sue CRNP [address] [place] [address] 10/25/2023 8:45 AM EDT Office Visit Gynecology/Obstetrics [facility] [address] [place] [address] Estela Sue CRNP [address] [place] [address] 11/01/2023 8:45 AM EDT Office Visit Gynecology/Obstetrics [facility] [address] [place] [address] Alejandra Reeves MD [address] [place] [address] 11/08/2023 8:45 AM EDT Office Visit Gynecology/Obstetrics [facility] [address] [place] [address] Lalo Morin MD [address] [place] [address] Pending Results Name Type Priority Associated Diagnoses Date /Time CBC WITH WBC DIFFERENTIAL AND ANEMIA REFLEX WORKUP Lab Routine Antepartum anemia complicating 09/13/2023 9:32 AM EST HEPATIC FUNCTION PANEL Lab Routine Elevated liver enzymes 09/13/2023 9:32 AM EST ANEMIA CBC Lab Routine Antepartum anemia complicating 09/13/2023 9:32 AM EST DIFFERENTIAL, AUTOMATED Lab Routine Antepartum anemia complicating 09/13/2023 9:32 AM EST ANEMIA REFLEX CHEMISTRY HOLD Lab Routine Antepartum anemia complicating 09/13/2023 9:32 AM EST Health Maintenance Due Date Last Done Comments [...] encounter Visit Diagnoses Diagnosis Antepartum anemia complicating Anemia, antepartum Elevated liver enzymes Nonspecific elevation of levels of transaminase or lactic acid dehydrogenase (LDH) documented in this encounter Care Teams De Icer Element Winder Relationship Specialty Start Date End Date Eran Dickinson DO [address] [facility] [place] [address] PCP - General Family Medicine 12/28/22 documented as of this encounter
--- OUTSIDE RECORDS SUMMARY | 2023-11-12 04:35 | External Medical Summary ---
Author Name Unknown Address Unknown Organization [facility] [address] [place] [address] Laboratory Report Ordering Provider Test Date Status REAL HERNANDEZ 09/02/2023 11:40:55 Final Observation Date Value Abnormality Reference (Units ) Status Glucose, 2-hr post glucose challenge 09/02/2023 11:40:55 155 Above high normal 70-154 (mg/dL) Final Performing Location LABORATORY [facility] 57-1 0 - [address] [place] [address]
--- OUTSIDE RECORDS SUMMARY | 2023-11-12 04:35 | External Medical Summary ---
Author Name Unknown Address Unknown Organization K0G:LAB[facility]ATORY [place] [address] - [address] [place] [address] Laboratory Report Ordering Provider Test Date Status JOHNHERNAN BERGER 09/13/2023 09:32:02 Final Observation Date Value Abnormality Reference (Units ) Status Nucleated erythrocytes/100 leukocytes [Ratio] in Blood by Automated count 09/13/2023 09:32:02 Final Performing Location LABORATORY [place] 57-[address] 0 - [address] [place] [address]
--- OUTSIDE RECORDS SUMMARY | 2023-11-12 04:35 | External Medical Summary ---
Author Name Unknown Address Unknown Organization K0G:LABORATORY [facility] 57-10 - [address] [place] [address] Laboratory Report Ordering Provider Test Date Status REAL HERNANDEZ 09/02/2023 10:40:58 Final Observation Date Value Abnormality Reference (Units ) Status Glucose [Mass/volume] in Serum or Plasma --1 hour post dose glucose 09/02/2023 10:40:58 164 70-179 (mg/dL) Final Performing Location LABORATORY [facility] 57-[address] 0 - [address] [place] [address]
--- OUTSIDE RECORDS SUMMARY | 2023-11-12 04:35 | External Medical Summary | Summary of Care ---
Author Name Unknown Organization [facility] Address [address] [place] [address] Phone [phone] Team Prov[address] Care [address] Project Manager Name Role Phone Teena Eran MELENDREZ Primary Care Provider [phone] Reason for Visit * Reason Comments Outpatient Testing Encounter Details Date Type Department Care Team (Late st Contact Info) Description 09/02/2023 9:30 AM EST Laboratory Laboratory, [facility] [address] [place] [phone] [facility] [address] [place] [address] Elevated glucose tolerance test Allergies No known active allergiesdocumented as of this encounter (statuses as of 09/02/2023) Medications Medication Sig Dispensed Refills Start Date [...] as of this encounter (statuses as of 09/02/2023) Active Problems Problem Noted Date Diagnosed Date [...] as of this encounter (statuses as of 09/02/2023) Immunizations Name Administration Dates Next Due TDAP [...] money to get more. Never true 06/09/2023 [place]vin Depression Scale Answer Date Recorded [place]vin Depression Scale Total 1 08/04/2023 The thought [...] Care Team (Late st Contact Info) Description 09/02/2023 1:30 PM EST Office Visit Gynecology/Obstetrics [facility] [address] [place] [address] Wilda Schmitz, MARGO [address] [place] [address] Arrived 09/13/2023 9:00 AM EST Office Visit Gynecology/Obstetrics [facility] [address] [place] [address] Lalo Morin MD [address] [place] [address] 09/27/2023 8:30 AM EST Office Visit Gynecology/Obstetrics [facility] [address] [place] [address] Estela Sue CRNP [address] [place] [address] 10/11/2023 8:30 AM EDT Office Visit Gynecology/Obstetrics [facility] [address] [place] [address] Caitlyn Marie DNP, MARGO [address] [place] [address] 10/18/2023 8:30 AM EDT Office Visit Gynecology/Obstetrics [facility] [address] [place] [address] Estela Sue CRNP [address] [place] [address] 10/25/2023 8:45 AM EDT Office Visit Gynecology/Obstetrics [facility] [address] [place] [address] Estela Sue CRNP [address] [place] [address] 11/01/2023 8:45 AM EDT Office Visit Gynecology/Obstetrics [facility] [address] [facility] [place] [address] Alejandra Reeves MD [address] [place], [place] [address] [address] 11/08/2023 8:45 AM EDT Office Visit Gynecology/Obstetrics [facility] [address] [place] [address] Lalo Morin MD [address] [place] [address] Pending Results Name Type Priority Associated Diagnoses Date /Time GESTATIONAL GLUCOSE TOLERANCE, 3 HOUR Lab Routine Elevated glucose tolerance test 09/02/2023 9:37 AM EST 100-G GESTATIONAL GLUCOSE, 3 HOUR Lab Routine Elevated glucose tolerance test 09/02/2023 12:40 PM EST Health Maintenance Due Date Last Done Comments Hepatitis B (1 of 3 - 3-dose series) 1998 GARDASIL-HPV IMMUNIZATION SERIES (1 - 2-dose series) 2009 Depression Screening 2010 COVID-19 Vaccine (2022-2 4 season) 2023 11/05/2021, 12/12/2020, 11/21/2020 Influenza [...] Not on filedocumented as of this encounter Procedures Procedure Name Priority Date/Time Associated Diagnosis Comments 100-G GESTATIONAL GLUCOSE, 2 HOUR Routine 09/02/2023 11:40 AM EST Elevated glucose tolerance test 100-G GESTATIONAL GLUCOSE, 1 HOUR Routine 09/02/2023 10:40 AM EST Elevated glucose tolerance test 100-G GESTATIONAL GLUCOSE, FASTING Routine 09/02/2023 9:37 AM EST Elevated glucose tolerance test documented in this encounter Results * (ABNORMAL) 100-G GESTATIONAL GLUCOSE, 2 HOUR (09/02/2023 11:40 AM EST) 100-g Gestational Glucose, 2 Hour 155(H) 70 - 154 mg/dL 09/02/2023 12:28 PM EST LAB[facility]AT[facility] [place] [facility] Blood Venous blood specimen / Unknown Venipuncture / Unknown 09/02/2023 11:40 AM EST 09/02/2023 11:40 AM EST Estela [facility] [place] 57-10 [address] [facility] [place] [address] * 100-G GESTATIONAL GLUCOSE, 1 HOUR (09/02/2023 10:40 AM EST) 100-g Gestational Glucose, 1 Hour 164 70 - 179 mg/dL 09/02/2023 11:17 AM EST [facility] [place] [facility]10 Blood Venous blood specimen / Unknown Venipuncture / Unknown 09/02/2023 10:40 AM EST 09/02/2023 10:40 AM EST Estela Mendez Linette [facility] [place] 57-[address] [place] [address] * 100-G GESTATIONAL GLUCOSE, FASTING (09/02/2023 9:37 AM EST) [facility] 100-g Gestational Glucose, Fasting 81 70 - 94 mg/dL 09/02/2023 11:02 AM EST LABORATORY [place] 57-10 Blood Venous blood specimen / Unknown Venipuncture / Unknown 09/02/2023 9:37 AM EST 09/02/2023 9:37 AM EST Narrative LABORATORY [facility] 57-10 - 09/02/2023 11:02 AM EST Based on ACOG guideline, gestational diabetes mellitus is diagnosed when any of the following is met: Fasting is greater than or equal to 95 mg/dL 1 hour is greater than or equal to 180 mg/dL 2 hour is greater than or equal to 155 mg/dL 3 hour is greater than or equal to 140 mg/dL Estela Mendez Linette [facility] [place] [address] [address] documented in this encounter Visit Diagnoses Diagnosis Elevated glucose tolerance test Impaired glucose tolerance test documented in this encounter Care Teams Rd Project Manager Relationship Specialty Start Date End Date Eran Dickinson DO [address] [place] [address] PCP - General Family Medicine 12/28/22 documented as of this encounter
--- OUTSIDE RECORDS SUMMARY | 2023-11-12 04:35 | External Medical Summary | Summary of Care ---
Author Name Unknown Organization [facility] Address [address] [place] [place] [address] Phone [phone] Care Team Providers Care Rad Tech Name Role Phone TeenaEran Primary Care Provider [phone] Reason for Visit * Reason Comments Return Visit Encounter Details Date Type Department Care Team ([facility] st Contact Info) Description 09/27/2023 8:30 AM EST Office Visit Gynecology/Obstetric s [facility] [address] [place] [address] Estela Sue CRNP [address] [place] [address] Encounter for supervision of normal first in third trimester*; Hypothyroidism affecting in third trimester; Elevated liver enzymes; Antepartum anemia complicating Allergies No known active allergiesdocumented as of this encounter (statuses as of 09/27/2023) Medications Medication Sig Dispensed Refills Start Date [...] as of this encounter (statuses as of 09/27/2023) Active Problems Problem Noted Date Diagnosed Date [...] as of this encounter (statuses as of 09/27/2023) Immunizations Name Administration Dates Next Due TDAP [...] money to get more. Never true 06/09/2023 [place] Depression Scale Answer Date Recorded [place] Depression Scale Total 3 09/27/2023 The thought [...] Sign Reading Time Taken Comments Blood Pressure 112/72 09/27/2023 8:24 AM EST Pulse - - Temperature - - Respiratory Rate - - Oxygen Saturation - - Inhaled Oxygen Concentration - - Weight 78.5 kg (173 lb) 09/27/2023 8:24 AM EST Height - - Body Mass Index 29.7 09/13/2023 8:51 AM EST documented in this encounter Progress Notes * Estela Sue CRNP - 09/27/2023 8:24 AM EST 33w5d Most recent LFTs were normal. Anemia improving on iron. Reports good movement. No ctx, leaking/bleeding. Labor instructions provided. Concerned with baby's head size, 's family has a history of "large heads". Discussed normal fundal measurement and margin of error for HC measurements when head is low. 2 week return NORMAN Machado * Gaye Greer LPN - 09/27/2023 8:23 AM EST 33w5d Denies vaginal bleeding/rom + movement Labor instructions given ? Growth US- concerns of head size documented in this encounter Plan of Treatment Upcoming Encounters Date Type Department Care Team (Late st Contact Info) Description 10/11/2023 8:30 AM EDT Office Visit Gynecology/Obstetrics [facility] [address] [place] [address] Caitlyn Marie, TORI, CNM [address] [place] [address] 10/18/2023 8:30 AM EDT Office Visit Gynecology/Obstetrics [facility] [address] [place] [address] Estela Sue CRNP [address] [place] [address] 10/25/2023 8:45 AM EDT Office Visit Gynecology/Obstetrics [facility] [address] [place] [address] Estela Sue CRNP [address] [place] [address] 11/01/2023 8:45 AM EDT Office Visit Gynecology/Obstetrics [facility] [address] [place] [address] Alejandra Reeves MD [address] [place] [address] 11/08/2023 8:45 AM EDT Office Visit Gynecology/Obstetrics [facility] [address] [place] [address] Lalo Morin MD [address] [place] [address] Health Maintenance Due Date Last Done Comments [...] antepartum documented in this encounter Care Teams Rad Tech Relationship Specialty Start Date End Date Eran Dickinson DO [address] [place] [address] PCP - General Family Medicine 12/28/22 documented as of this encounter
--- OUTSIDE RECORDS SUMMARY | 2023-11-12 04:35 | External Medical Summary | Summary of Care ---
Author Name Unknown Organization [facility] Address [address] [place] [address] Phone [phone] Care Team Providers Care Water Pollution Control Technician Name Role Phone Teena Eran MELENDREZ Primary Care Provider [phone] Reason for Visit * Reason Comments Return Visit Encounter Details Date Type Department Care Team (Latest Contact Info) Description 09/13/2023 9:00 AM EST Office Visit [facility] [address] [place] [address] Lalo Morin MD [address] [place] [address] Hypothyroidism affecting in third trimester*; Encounter for [...] money to get more. Never true 06/09/2023 [place] Depression Scale Answer Date Recorded [place] Depression Scale Total 1 08/04/2023 The thought [...] Sign Reading Time Taken Comments Blood Pressure 94/68 09/13/2023 8:51 AM EST Pulse - - Temperature - - Respiratory Rate - - Oxygen Saturation - - Inhaled Oxygen Concentration - - Weight 78 kg (172 lb) 09/13/2023 8:51 AM EST Height 162.6 cm (5' 4") 09/13/2023 8:51 AM EST Body Mass Index 29.52 09/13/2023 8:51 AM EST documented in this encounter Progress Notes * Lalo Morin MD - 09/13/2023 9:13 AM EST Pt doing well No complaints Hx of elevated LFT in Jun 2023. Repeat in Jul was nml- Pt has another james for today RTC 2 weeks documented in this encounter Nursing Notes * Jennifer Fry LPN - 09/13/2023 9:03 AM EST 31w5d Heartburn, swelling in hands. Recommend tums, pepcid, adequate hydration. Repeat CBC today. documented in this encounter Plan of Treatment Upcoming Encounters Date Type Department Care Team (Late st Contact Info) Description 09/27/2023 8:30 AM EST Office Visit Gynecology/Obstetrics [facility] [address] [place] [address] Estela Sue CRNP [address] [place] [address] 10/11/2023 8:30 AM EDT Office Visit Gynecology/Obstetrics [facility] [address] [place] [address] Caitlyn Marie, DNP, CNM [address] [facility] [place] [address] 10/18/2023 8:30 AM EDT Office Visit Gynecology/Obstetrics [facility] [address] [place] [address] Estela Sue CRNP [address] [place] [address] 10/25/2023 8:45 AM EDT Office Visit Gynecology/Obstetrics [facility] [address] [place] [address] Estela Sue CRNP [address] [place] [address] 11/01/2023 8:45 AM EDT Office Visit Gynecology/Obstetrics [facility] [address] [place] [address] Alejandra Reeves MD [address] [facility] [place] [address] 11/08/2023 8:45 AM EDT Office Visit Gynecology/Obstetrics [facility] [address] [place] [address] Lalo Morin MD [address] [place] [address] Health Maintenance Due Date Last Done Comments [...] Not on filedocumented as of this encounter Results * (ABNORMAL) HEPATIC FUNCTION PANEL (09/13/2023 9:32 AM EST) [facility] Albumin 3.7(L) 3.8 - 5.0 g/dL 09/13/2023 10:56 AM EST LAB[facility]ATORY [place] 57[facility]10 AST 19 10 - 35 U/L 09/13/2023 10:56 AM EST LAB[facility] [place] 57[place]10 Alkaline Phosphatase 106 35 - 130 U/L 09/13/2023 10:56 AM EST [facility] [place] [facility] ALT 16 10 - 35 U/L 09/13/2023 10:56 AM EST LAB[facility] [place] 57-10 Bilirubin, Total 0.6 <=1.2 mg/dL 09/13/2023 10:56 AM EST LAB[facility] [place] 57[place]10 Bilirubin, Direct <0.2 0.0 - 0.3 mg/dL 09/13/2023 10:56 AM EST LAB[facility] [place] [facility] Protein 5.9(L) 6.0 - 8.3 g/dL 09/13/2023 10:56 AM EST LAB[facility] [place] [facility]10 Blood Venous blood specimen / Unknown Venipuncture / Unknown 09/13/2023 9:32 AM EST 09/13/2023 9:32 AM EST Lalo Morin MD LAB BLOOD ORDERABLES LAB[facility]ATORY [place] [facility] [facility] [place] [address] documented in this encounter Visit Diagnoses Diagnosis Hypothyroidism affecting in third trimester- Primary Encounter for supervision of normal first in third trimester Supervision of normal first Elevated liver enzymes Nonspecific elevation of levels of transaminase or lactic acid dehydrogenase (LDH) Antepartum anemia complicating Anemia, antepartum documented in this encounter Care Teams Water Pollution Control Technician Relationship Specialty Start Date End Date Eran Dickinson DO [address] [facility] [place] [address] PCP - General Family Medicine 12/28/22 documented as of this encounter
--- OUTSIDE RECORDS SUMMARY | 2023-11-12 04:35 | External Medical Summary ---
Author Name Unknown Address Unknown Organization [facility]ORY [place] 57-[address] - [address] [place] [address] Laboratory Report Ordering Provider Test Date Status EVELIO HERNANDEZSUDHEER 09/02/2023 09:37:30 Final Based on ACOG guideline, ges tational diabetes mellitus is diagnosed when any of the following is met:
Fasting is greater than or equal to 95 mg/dL
1 hour is greater than or equal to 180 mg/dL
2 hour is greater than or equal to 155 mg/dL
3 hour is greater than or equal to 140 mg/dL Observation Date Value Abnormality Reference (Units ) Status Glucose, fasting 09/02/2023 09:37:30 81 70- 94 (mg/dL) Final Performing Location LABORATORY [facility] 57-1 0 - [address] [place] [address]
--- OUTSIDE RECORDS SUMMARY | 2023-11-12 04:35 | External Medical Summary ---
Author Name Unknown Address Unknown Organization K0G:LABORATORY [place] 57-[address] - [address] [place] [address] Laboratory Report Ordering Provider Test Date Status HERNAN LOPEZ 09/13/2023 09:32:02 Final Observation Date Value Abnormality Reference (Units ) Status Albumin 09/13/2023 09:32:02 3.7 Below low normal 3.8-5.0 (g/dL) Final AST (Aspartate aminotransferase) 09/13/2023 09:32:02 19 10-35 (U/L) Final Alk Phos 09/13/2023 09:32:02 106 35-130 (U/L) Final ALT (Alanine aminotransferase) 09/13/2023 09:32:02 16 10-35 (U/L) Final Bilirubin, Total 09/13/2023 09:32:02 0.6 <=1.2 (mg/dL) Final Bilirubin, Direct 09/13/2023 09:32:02 <0.2 0.0-0.3 (mg/dL) Final Protein 09/13/2023 09:32:02 5.9 Below low normal 6.0-8.3 (g/dL) Final Performing Location LABORATORY [place] 57-[address] - [address] [place] [address]
--- OUTSIDE RECORDS SUMMARY | 2023-11-12 04:35 | External Medical Summary ---
Author Name Unknown Address Unknown Organization [facility] [place] [address] - [address] [place] [address] Laboratory Report Ordering Provider Test Date Status HERNAN LOPEZ 09/13/2023 09:32:02 Final Observation Date Value Abnormality Reference (Units ) Status SYNC LEUKOCYTES IN BLOOD BY AUTOMATED COUNT 09/13/2023 09:32:02 11.82 Above high normal 4.00-10.80 (K/uL) Final Segs 09/13/2023 09:32:02 69.9 40.0-75.0 (%) Final Lymphs % 09/13/2023 09:32:02 17.2 Below low normal 18.0-42.0 (%) Final Monos 09/13/2023 09:32:02 11.9 Above high normal 1.0-11.0 (%) Final Eosinophils 09/13/2023 09:32:02 0.8 0.0-6.0 (%) Final Basos 09/13/2023 09:32:02 0.2 0.0-2.0 (%) Final Absolute Segs 09/13/2023 09:32:02 8.27 Above high normal 1.80-7.70 (K/uL) Final Lymphs, absolute 09/13/2023 09:32:02 2.03 1.00-4.80 (K/ul) Final Monos, Abs 09/13/2023 09:32:02 1.41 Above high normal 0.00-1.10 (K/uL) Final Eos, Abs 09/13/2023 09:32:02 0.09 0.00-0.70 (K/uL) Final Basos, Abs 09/13/2023 09:32:02 0.02 0.00-0.20 (K/uL) Final Performing Location LABORATORY [facility] 57-[address] [place] [address]
--- OUTSIDE RECORDS SUMMARY | 2023-11-12 04:35 | External Medical Summary | Summary of Care ---
Author Name Unknown Organization [facility] Address [address] [place] [address] Phone [phone] Care Team Providers Care Duplex Trimmer Name Role Phone Teena Eran MELENDREZ Primary Care Provider [phone] Reason for Visit * Reason Comments Return Visit Encounter Details Date Type Department Care Team (Late st Contact Info) Description 09/02/2023 1:30 PM EST Office Visit Gynecology/Obstetric s [facility] [address] [facility] [place] [address] Wilda Schmitz CNM [address] [place] [address] Encounter for supervision of normal first in [...] money to get more. Never true 06/09/2023 [place] Depression Scale Answer Date Recorded [place] Depression Scale Total 1 08/04/2023 The thought [...] Sign Reading Time Taken Comments Blood Pressure 106/62 09/02/2023 1:19 PM EST Pulse - - Temperature - - Respiratory Rate - - Oxygen Saturation - - Inhaled Oxygen Concentration - - Weight 76.7 kg (169 lb) 09/02/2023 1:19 PM EST Height 162.6 cm (5' 4") 09/02/2023 1:19 PM EST Body Mass Index 29.01 09/02/2023 1:19 PM EST documented in this encounter Progress Notes * Wilda Schmitz CNM - 09/02/2023 1:31 PM EST Sherri Rutledge is a 23 year old female here for her routine OB appointment at 30w1d Her Estimated Date of Delivery: 11/10/23 REVIEW OF SYSTEMS: She affirms movement. Denies vaginal bleeding, LOF, contractions, N/V, headaches PHYSICAL EXAM: Filed Vitals: 09/02/23 1319 BP: 106/62 Weight: 76.7 kg (169 lb) Height: 1.626 m (5' 4") +FHT 150s Fundal height 30 ASSESSMENT/PLAN: 1. Hypothyroidism affecting TSH 1.88 on 08/16/23 2. Elevated liver enzymes Recheck next visit 3. Antepartum anemia complicating Taking iron supplement 4. Encounter for supervision of normal first in third trimester Supervision of - labor precautions and kick counts reviewed - RTO in 2 weeks Wilda Schmitz CNM documented in this encounter Nursing Notes * Asya Hdz LPN - 09/02/2023 1:15 PM EST 30w1d Doing 3 gtt today Exercise to prepare for labor documented in this encounter Plan of Treatment Upcoming Encounters Date Type Department Care Team (Late st Contact Info) Description 09/13/2023 9:00 AM EST Office Visit Gynecology/Obstetrics [facility] [address] [place] [address] Lalo Morin MD [address] [place] [address] 09/27/2023 8:30 AM EST Office Visit Gynecology/Obstetrics [facility] [address] [place] [address] BackEstela niño CRNP [address] [place] [address] 10/11/2023 8:30 AM EDT Office Visit Gynecology/Obstetrics [facility] [address] [place] [address] Caitlyn Marie, DNP, CN [address] [facility] [address] 10/18/2023 8:30 AM EDT Office Visit Gynecology/Obstetrics [facility] [address] [place] [address] Estela Sue CRNP [address] [place] [address] 10/25/2023 8:45 AM EDT Office Visit Gynecology/Obstetrics [facility] [address] [place] [address] BackEstela niño CRNP [address] [place] [address] 11/01/2023 8:45 AM EDT Office Visit Gynecology/Obstetrics [facility] [address] [facility] [place] [address] Alejandra Reeves MD [address] [place] [address] 11/08/2023 8:45 AM EDT Office Visit Gynecology/Obstetrics [facility] [address] [facility] [place] [address] Lalo Morin MD [address] [place] [address] Health Maintenance Due Date Last Done Comments Hepatitis B (1 of 3 - 3-dose series) 1998 GARDASIL-HPV IMMUNIZATION SERIES (1 - 2-dose series) 2009 Depression Screening 2010 COVID-19 Vaccine (4 - 2022-2 4 season) [...] antepartum documented in this encounter Care Teams Duplex Trimmer Relationship Specialty Start Date End Date Eran Dickinson DO [address] [facility] [place] [address] PCP - General Family Medicine 12/28/22 documented as of this encounter
--- OUTSIDE RECORDS SUMMARY | 2023-11-12 04:35 | External Medical Summary | Summary of Care ---
Author Name Unknown Organization [facility] Address [address] [place] [address] Phone [phone] Care Team Providers Care Control Specialist Name Role Phone Eran Dickinson Primary Care Provider [phone] Reason for Visit * Reason Comments Return Visit Encounter Details Date Type Department Care Team ([facility] st Contact Info) Description 10/11/2023 8:30 AM EDT Office Visit Gynecology/Obstetric s [facility] 132 [facility] [place] [address] Caitlyn Marie, DNP, CNM [address] [place], [place] [id number] Supervision of normal first , antepartum*; Elevated liver enzymes; Antepartum anemia complicating ; Hypothyroidism affecting in third trimester Allergies No known active allergiesdocumented as of this encounter (statuses as of 10/11/2023) Medications Medication Sig Dispensed Refills Start Date [...] as of this encounter (statuses as of 10/11/2023) Active Problems Problem Noted Date Diagnosed Date [...] as of this encounter (statuses as of 10/11/2023) Immunizations Name Administration Dates Next Due TDAP [...] money to get more. Never true 06/09/2023 [place] Depression Scale Answer Date Recorded [place] Depression Scale Total 3 09/27/2023 The thought [...] Sign Reading Time Taken Comments Blood Pressure 112/74 10/11/2023 8:23 AM EDT Pulse - - Temperature - - Respiratory Rate - - Oxygen Saturation - - Inhaled Oxygen Concentration - - Weight 78.9 kg (174 lb) 10/11/2023 8:23 AM EDT Height - - Body Mass Index 29.87 09/13/2023 8:51 AM EST documented in this encounter Progress Notes * Caitlyn Marie, TORI, CNM - 10/11/2023 8:33 AM EDT 35w5d Experiencing some carpal tunnel like symptoms, discussed wrist splints. Occasionally noticing waking up with with "feeling like the back of my throat is starting to close up." Believes this is a dental issue as she has an overbite that has been problematic and worsened with . States her father has same issue and is having surgery. Hasn't noticed any SOB duringthe day and denies chest pain. States this only happens infrequently but wanted to mention. Discussed f/u with dentist if persisting. Pt will message hepatology to see if they would like her to repeat hepatic function panel this months. 3rd tri TSH order placed. Reviewed labor precautions, kick counts, loss of fluid, vaginal bleeding, round ligament pain, and encouraged hydration. Plans on minipill for pp contraception, has hospital tour and class scheduled. RTO in 1 week for JOSE ALFREDO/GBS culture. * Gaye Greer LPN - 10/11/2023 8:22 AM EDT 35w5d Denies vaginal bleeding/rom + movement [facility]os Feeling of poor circulation in hands- tingling Feels difficult to breath when sleeping- will wake up out of sleep- does not happen everything night and typically only happens once if it does occur. Denies chest pain when this happens. documented in this encounter Plan of Treatment Upcoming Encounters Date Type Department Care Team (Late st Contact Info) Description 10/18/2023 8:30 AM EDT [facility] [address] [place] [address] BackEstela niño CRNP [address] [place] [address] 10/25/2023 8:45 AM EDT Office [facility] [address] [place] [address] Estela Sue CRNP [address] [place] [address] 11/01/2023 8:45 AM EDT Office Visit [facility] [address] [place] [address] Alejandra Reeves MD [facility] [place]note 2] [place] [address] 11/08/2023 8:45 AM EDT Office Visit Gynecology/Obstetrics [facility] [address] [place] [address] Lalo Morin MD [address] [place] [address] Scheduled Orders Name Type Priority Associated Diagnoses Orde r Schedule TSH WITH FREE T4 IF INDICATED Lab Routine Expected: 2023, Expires: 10/10/2024 Health Maintenance Due Date Last Done Comments [...] as of this encounter Visit Diagnoses Diagnosis Supervision of normal first , antepartum- Primary Elevated liver enzymes Nonspecific elevation of levels of transaminase or lactic acid dehydrogenase (LDH) Antepartum anemia complicating Anemia, antepartum Hypothyroidism affecting in third trimester documented in this encounter Care Teams Control Specialist Relationship Specialty Start Date End Date Eran Dickinson DO [address] [place] [address] PCP - General Family Medicine 12/28/22 documented as of this encounter
--- OUTSIDE RECORDS SUMMARY | 2023-11-12 04:35 | External Medical Summary | Summary of Care ---
Author Name Unknown Organization [facility] Address [address] [place] [address] Phone [phone] Care Team Providers Care Air Conditioning Installer Name Role Phone TeenaEran Primary Care Provider [phone] Reason for Visit * Reason Onset Date Comments Test Results 08/17/2023 Encounter Details Date Type Department Care Team ([facility] Contact Info) Description 08/17/2023 Telephone Gynecology/Obstetrics [facility] [address] [facility] [place] [address] Estela Sue CRNP [address] [facility] [address] Test Results Allergies No known active allergiesdocumented [...] Sulfate 325 (65 Fe) MG Oral Tablet (Feosol)Indication s:Antepartum anemia complicating Take 1 Tablet by mouth in the morning and 1 Tablet before bedtime. 60 Tablet 2 09/20/2023 Active Ferrous Sulfate 325 (65 Fe) MG Oral Tablet (Feosol)Indication s:Antepartum anemia complicating Take 1 Tablet by mouth in the morning and 1 Tablet before bedtime. 60 Tablet 3 08/17/2023 09/20/2023 Discontinue d(Refill) documented as of this encounter (statuses as [...] money to get more. Never true 06/09/2023 [place] Depression Scale Answer Date Recorded [place] Depression Scale Total 1 08/04/2023 The thought [...] encounter Miscellaneous Notes * Addendum Note - Shivam Riley RPh - 09/20/2023 9:43 AM ESTAddended by: SHIVAM RILEY on: 09/20/2023 09:43 AM Modules accepted: Orders * Telephone Encounter - Shivam Riley RPh - 09/20/2023 9:43 AM EST Rx rerouted Shivam Stovall PharmD Clinical Pharmacist [facility] [phone] 09/20/2023 9:43 AM * Addendum Note - Rain Hylton CPhT - 09/20/2023 9:40 AM ESTAddended by: RAIN HYLTON on: 09/20/2023 09:40 AM Modules accepted: Orders * Telephone Encounter - Rain Hylton CPhT - 09/20/2023 9:40 AM EST Please reroute Rx to [facility] [address] [place] [address] [place]. Pending Prescriptions: Disp Refills Ferrous [...] 09/27/2023 8:30 AM EST Office [facility] [address] [facility] [place] [address] Estela Sue CRNP [address] [place] [address] 10/11/2023 8:30 AM EDT Office Visit Gynecology/Obstetrics [facility] [address] [place] [address] Caitlyn Marie, DNP, CNM [address] [place] [address] 10/18/2023 8:30 AM EDT Office Visit Gynecology/Obstetrics [facility] [address] [place] [address] Estela Sue CRNP [address] [place] [address] 10/25/2023 8:45 AM EDT Office Visit Gynecology/Obstetrics [facility] [address] [place] [address] Estela Sue CRNP [address] [place] [address] 11/01/2023 8:45 AM EDT Office Visit Gynecology/Obstetrics [facility] [address] [place] [address] Alejandra Reeves MD [address] [place] [address] 11/08/2023 8:45 AM EDT Office Visit Gynecology/Obstetrics [facility] [address] [place] [address] Lalo Morin MD [address] [place] [address] Health Maintenance Due Date Last Done Comments Depression Screening 2010 GARDASIL-HPV IMMUNIZATION SERIES (1 - 3-dose series) 2013 Hepatitis B (1 of 3 - 19+ 3-dose series) 2017 COVID-19 Vaccine ( - 2022-2 4 season) 2023 11/05/2021, 12/12/2020, [...] test documented in this encounter Care Teams Air Conditioning Installer Relationship Specialty Start Date End Date Eran Dickinson DO [address] [place] [address] PCP - General Family Medicine 12/28/22 documented as of this encounter
--- OUTSIDE RECORDS SUMMARY | 2023-11-12 04:36 | External Medical Summary ---
Author Name Unknown Address Unknown Organization [id number]:LABORATORY [facility] [place] - [facility] [address] [place] [address] Laboratory Report Ordering Provider Test Date Status REAL HERNANDEZ 08/16/2023 09:08:19 Final Observation Date Value Abnormality Reference (Units ) Status Creatinine 08/16/2023 09:08:19 0.5 0.5-1.0 (mg/dL) Final Glomerular filtration rate/1.73 sq M.predicted [Volume Rate/Area] in Serum, Plasma or Blood by Creatinine-based formula (CKD-EPI) 08/16/2023 09:08:19 >90 >=60 (mL/min) Final eGFR is calculated based on the CKD-EPI 2020 equation Performing Location LABORATORY [facility] [place] - [facility] [place] [address] [place] [address]
--- OUTSIDE RECORDS SUMMARY | 2023-11-12 04:36 | External Medical Summary ---
Author Name Unknown Address Unknown Organization [id number]:LABORATORY [place] [address] - [address] [place] [address] Laboratory Report Ordering Provider Test Date Status REAL HERNANDEZ 08/16/2023 09:08:19 Final Observation Date Value Abnormality Reference (Units ) Status Nucleated erythrocytes/100 leukocytes [Ratio] in Blood by Automated count 08/16/2023 09:08:19 Final Performing Location LABORATORY [place] [address] - [address] [place] [address]
--- OUTSIDE RECORDS SUMMARY | 2023-11-12 04:36 | External Medical Summary ---
Author Name Unknown Address Unknown Organization [id number]:LABORATORY [facility] [place] [address] - [address] [place] [address] Laboratory Report Ordering Provider Test Date Status REAL HERNANDEZ 08/16/2023 09:08:19 Final Observation Date Value Abnormality Reference (Units ) Status WBC, Total 08/16/2023 09:08:19 11.70 Above high normal 4 .00-10.80 (K/uL) Final RBC 08/16/2023 09:08:19 3.88 3.85-5.15 (M/uL) Final Hemoglobin 08/16/2023 09:08:19 11.1 Below low normal 12 .0-15.3 (g/dL) Final Anemia reflex testing trigge rs on a HGB < 12.0 for Females and HGB < 13.0 for Males in accordance with the WHO Anemia Guidelines
Anemia reflex testing triggers on a HGB < 12.0 for Females and HGB < 13.0 for Males in accordance with the WHO Anemia Guidelines HCT 08/16/2023 09:08:19 34.5 Below low normal 36. 0-45.2 (%) Final MCV 08/16/2023 09:08:19 88.9 81.5-97.5 (fL) Final MCH 08/16/2023 09:08:19 28.6 27.0-34.0 (pg) Final MCHC 08/16/2023 09:08:19 32.2 32.0-36.0 (g/dL) Final RDW 08/16/2023 09:08:19 12.8 11.5-15.5 (%) Final Platelets 08/16/2023 09:08:19 277 140-400 (K /uL) Final MPV 08/16/2023 09:08:19 9.9 6.6-11.1 ( fL) Final Performing Location LABORATORY [place] [address] - [address] [place] [address]
--- OUTSIDE RECORDS SUMMARY | 2023-11-12 04:36 | External Medical Summary ---
Author Name Unknown Address Unknown Organization [id number]:LAB[facility]ATORY [facility] [place] [address] [place] [address] Laboratory Report Ordering Provider Test Date Status REAL HERNANDEZ 08/16/2023 09:08:19 Final Observation Date Value Abnormality Reference (Units ) Status Iron 08/16/2023 09:08:19 95 33-151 (ug/dL) Final Iron-binding capacity 08/16/2023 09:08:19 434 Above high normal 250-425 (ug/dL) Final Transferrin Sat % 08/16/2023 09:08:19 22 15-55 (%) Final Performing Location LABORATORY [facility] [place] - [address] [place] [address]
--- OUTSIDE RECORDS SUMMARY | 2023-11-12 04:36 | External Medical Summary | Summary of Care ---
Author Name Unknown Organization [facility] Address [address] [place] [place] [place] [address] Phone [phone] Care Team Providers Care Program Development Specialist Name Role Phone Teena Eran MELENDREZ Primary Care Provider [phone] Reason for Visit * Reason Onset Date Comments Test Results 08/17/2023 Encounter Details Date Type Department Care Team (Late st Contact Info) Description 08/17/2023 Telephone Gynecology/Obstetrics [facility] [address] [place] [address] Estela Sue CRNP [address] [facility] [place] [address] Test Results Allergies No known active allergiesdocumented as of this encounter (statuses as of 08/17/2023) Medications Medication Sig Dispensed Refills Start Date [...] as of this encounter (statuses as of 08/17/2023) Active Problems Problem Noted Date Diagnosed Date [...] as of this encounter (statuses as of 08/17/2023) Immunizations Name Administration Dates Next Due TDAP [...] money to get more. Never true 06/09/2023 [place] Depression Scale Answer Date Recorded [place] Depression Scale Total 1 08/04/2023 The thought [...] encounter Miscellaneous Notes * Telephone Encounter - Sandhya Malin LPN [...] 09/02/2023 1:30 PM EST Office Visit Gynecology/Obstetrics [facility] [address] [place] [address] Wilda Schmitz CNM [address] [facility] [place] [address] 09/13/2023 9:00 AM EST Office Visit Gynecology/Obstetrics [facility] [address] [place] [address] Lalo Morin MD [address] [place] [address] 09/27/2023 8:30 AM EST Office Visit Gynecology/Obstetrics [facility] [address] [place] [address] BackEstela niño CRNP [address] [place] [address] 10/11/2023 8:30 AM EDT Office Visit Gynecology/Obstetrics [facility] [address] [place] [address] Caitlyn Marie, TORI, CNM [address] [place] [address] 10/18/2023 8:30 AM EDT Office Visit Gynecology/Obstetrics [facility] [address] [place] [address] BackEstela niño CRNP [address] [place] [address] 10/25/2023 8:45 AM EDT Office Visit Gynecology/Obstetrics [facility] [address] [place] [address] Estela Sue CRNP [address] [place] [address] 11/01/2023 8:45 AM EDT Office Visit Gynecology/Obstetrics [facility] [address] [place] [address] Alejandra Reeves MD [address] [place] [address] 11/08/2023 8:45 AM EDT Office Visit Gynecology/Obstetrics [facility] [address] [place] [address] Lalo Morin MD [address] [place] [address] Scheduled Orders Name Type Priority Associated Diagnoses Orde r Schedule GESTATIONAL GLUCOSE TOLERANCE, 3 HOUR Lab Routine Elevated glucose tolerance test Expected: 08/17/2023 (Approximate), Expires: 08/17/2024 Health Maintenance Due Date Last Done Comments [...] test documented in this encounter Care Teams Program Development Specialist Relationship Specialty Start Date End Date Eran Dickinson DO [address] [place] [address] PCP - General Family Medicine 12/28/22 documented as of this encounter
--- OUTSIDE RECORDS SUMMARY | 2023-11-12 04:36 | External Medical Summary ---
Author Name Unknown Address Unknown Organization [id number]:LABORATORY [facility] [place] [address] - [address] [place] [address] Laboratory Report Ordering Provider Test Date Status REAL HERNANDEZ 08/16/2023 09:08:19 Final Observation Date Value Abnormality Reference (Units ) Status SYNC LEUKOCYTES IN BLOOD BY AUTOMATED COUNT 08/16/2023 09:08:19 11.70 Above high normal 4.00-10.80 (K/uL) Final Segs 08/16/2023 09:08:19 75.4 Above high normal 40.0-75.0 (%) Final Lymphs % 08/16/2023 09:08:19 15.3 Below low normal 18.0-42.0 (%) Final Monos 08/16/2023 09:08:19 8.5 1.0-11.0 (%) Final Eosinophils 08/16/2023 09:08:19 0.6 0.0-6.0 (%) Final Basos 08/16/2023 09:08:19 0.2 0.0-2.0 (%) Final Absolute Segs 08/16/2023 09:08:19 8.82 Above high normal 1.80-7.70 (K/uL) Final Lymphs, absolute 08/16/2023 09:08:19 1.79 1.00-4.80 (K/ul) Final Monos, Abs 08/16/2023 09:08:19 1.00 0.00-1.10 (K/uL) Final Eos, Abs 08/16/2023 09:08:19 0.07 0.00-0.70 (K/uL) Final Basos, Abs 08/16/2023 09:08:19 0.02 0.00-0.20 (K/uL) Final Performing Location LABORATORY [facility] [place] [address] [place] [address]
--- OUTSIDE RECORDS SUMMARY | 2023-11-12 04:36 | External Medical Summary ---
Author Name Unknown Address Unknown Organization [id number]:[facility] [place] [address] [facility] [place] [address] Laboratory Report Ordering Provider Test Date Status REAL HERNANDEZ 08/16/2023 09:08:19 Final Observation Date Value Abnormality Reference (Units ) Status TSH 08/16/2023 09:08:19 1.88 0.27-4.20 (uIU/mL) Final Performing Location [facility] [place] [address] [facility] [address]
--- OUTSIDE RECORDS SUMMARY | 2023-11-12 04:36 | External Medical Summary | Summary of Care ---
Author Name Unknown Organization [facility] Address [address] [place] [address] Phone [phone] Care Team Providers Care House Servant Name Role Phone Teena Eran MELENDREZ Primary Care Provider [phone] Reason for Visit * Reason Comments Outpatient Testing Encounter Details Date Type Department Care Team (Late st Contact Info) Description 08/16/2023 7:50 AM EST Laboratory Laboratory, [facility] [address] [place] [phone] [facility] [address] [place] [address] Encounter for supervision of normal first in second trimester; Hypothyroidism affecting in second trimester Allergies No known active allergiesdocumented as of this encounter (statuses as of 08/16/2023) Medications Medication Sig Dispensed Refills Start Date End Date Status Levothyroxine Sodium 25 MCG Oral Tablet (Levoxyl) Take 1 Tablet by mouth daily first thing in the morning. (at least 30 min prior to breakfast or other meds) 0 Active 6.75-0.2 MG Oral Tablet Take by mouth. 0 Active documented as of this encounter (statuses as of 08/16/2023) Active Problems Problem Noted Date Diagnosed Date Elevated liver enzymes 2023 Overview: Bile acids [...] as of this encounter (statuses as of 08/16/2023) Immunizations Name Administration Dates Next Due TDAP [...] money to get more. Never true 06/09/2023 [place] Depression Scale Answer Date Recorded [place] Depression Scale Total 1 08/04/2023 The thought [...] [facility] [address] [place] [address] Wilda Schmitz, MARGO [address] [facility] [place] [address] 09/13/2023 9:00 AM EST Office Visit Gynecology[facility]st[facility]s [facility] [address] [place] [address] Lalo Morin MD [address] [place] [address] 09/27/2023 8:30 AM EST Office Visit Gynecology/[facility] [address] [place] [address] Estela Sue CRNP [address] [place] [address] 10/11/2023 8:30 AM EDT Office Visit Gynecology[facility]s [facility] [address] [place] [address] Caitlyn Marie DNP, CNM [address] [facility] [address] 10/18/2023 8:30 AM EDT Office Visit Gynecology/Obst[facility]s [facility] [address] [place] [address] Estela Sue CRNP [address] [place] [address] 10/25/2023 8:45 AM EDT Office Visit Gynecology/Obst[facility]s [facility] [address] [place] [address] Estela Sue CRNP [address] [place] [address] 11/01/2023 8:45 AM EDT Office Visit Gynecology/Obstetrics [facility] [address] [facility] [place] [address] Alejandra Reeves MD [address] [place], [place] [address] [address] 11/08/2023 8:45 AM EDT Office Visit Gynecology/Obstetrics [facility] [address] [facility] [place] [address] Lalo Morin MD [address] [place] [address] Pending Results Name Type Priority Associated Diagnoses Date /Time 50-G GESTATIONAL GLUCOSE, 1 HOUR Lab Routine Encounter for supervision of normal first in second trimester 08/16/2023 9:08 AM EST SYPHILIS ANTIBODY SCREEN WITH REFLEX TO RPR Lab Routine Encounter for supervision of normal first in second trimester 08/16/2023 9:08 AM EST CBC WITH WBC DIFFERENTIAL AND ANEMIA REFLEX WORKUP Lab Routine Encounter for supervision of normal first in second trimester 08/16/2023 9:08 AM EST TSH WITH FREE T4 IF INDICATED Lab Routine Hypothyroidism affecting in second trimester 08/16/2023 9:08 AM EST SYPHILIS ANTIBODY SCREEN Lab Routine Encounter for supervision of normal first in second trimester 08/16/2023 9:08 AM EST ANEMIA CBC Lab Routine Encounter for supervision of normal first in second trimester 08/16/2023 9:08 AM EST DIFFERENTIAL, AUTOMATED Lab Routine Encounter for supervision of normal first in second trimester 08/16/2023 9:08 AM EST ANEMIA REFLEX CHEMISTRY HOLD Lab Routine Encounter for supervision of normal first in second trimester 08/16/2023 9:08 AM EST Health Maintenance Due Date Last Done Comments Hepatitis B (1 of 3 - 3-dose series) 1998 GARDASIL-HPV IMMUNIZATION SERIES (1 - 2-dose series) 2009 Depression Screening 2010 COVID-19 Vaccine (4 - 2022-2 4 season) 2023 11/05/2021, 12/12/2020, 11/21/2020 Influenza Vaccine (FLU shot) (#1) 2023 TSH 05/26/2024 05/26/2023, 03/30/2023 Pap Smear 03/30/2026 03/30/2023 DTaP,Tdap,and [...] Encounter for supervision of normal first in second trimester Supervision of normal first Hypothyroidism affecting in second trimester documented in this encounter Care Teams House Servant Relationship Specialty Start Date End Date Eran Dickinson DO [address] [facility] [place] [address] PCP - General Family Medicine 12/28/22 documented as of this encounter
--- OUTSIDE RECORDS SUMMARY | 2023-11-12 04:36 | External Medical Summary ---
Author Name Unknown Address Unknown Organization K01:LABORATORY [facility] - [address] [facility] [place] [place] [address] Laboratory Report Ordering Provider Test Date Status REAL HERNANDEZ 08/16/2023 09:08:19 Final Observation Date Value Abnormality Reference (Units ) Status Treponema pallidum Ab [Presence] in Serum by Immunoassay 08/16/2023 09:08:19 Nonreactive Nonreactive Final No serologic evidence of syp hilis. No additional testing clinicially indicated at this time. Consider repeat testing in 2-4 weeks if acute or primary syphilis is suspected. Performing Location LABORATORY [facility] - [address] [place] [address]
--- OUTSIDE RECORDS SUMMARY | 2023-11-12 04:36 | External Medical Summary ---
Author Name Unknown Address Unknown Organization [id number]:LABORATORY [facility] - [address] [place] [address] Laboratory Report Ordering Provider Test Date Status EVELIO HERNANDEZSUDHEER 08/16/2023 09:08:19 Final Observation Date Value Abnormality Reference (Units ) Status Ferritin 08/16/2023 09:08:19 30 13-150 (ng /mL) Final Performing Location LABORATORY [facility] - [address] [place] [address]
--- OUTSIDE RECORDS SUMMARY | 2023-11-12 04:36 | External Medical Summary | Summary of Care ---
Author Name Unknown Organization [facility] Address [address] [facility] [place] [address] Phone [phone] Care Team Providers Care Occupational Health Professional Name Role Phone Teena Eran MELENDREZ Primary Care Provider [phone] Reason for Visit * Reason Comments Return Visit Encounter Details Date Type Department Care Team (Late st Contact Info) Description 08/04/2023 8:45 AM EST Office Visit [facility]necology/Obstetric s [facility] [address] [place] [address] Estela Sue CRNP [address] [place] [address] Encounter for supervision of normal first in second trimester*; Hypothyroidism affecting in second trimester; Elevated liver enzymes Allergies No known active allergiesdocumented as of this encounter (statuses as of 08/04/2023) Medications Medication Sig Dispensed Refills Start Date End Date Status Levothyroxine Sodium 25 MCG Oral Tablet (Levoxyl) Take 1 Tablet by mouth daily first thing in the morning. (at least 30 min prior to breakfast or other meds) 0 Active 6.75-0.2 MG Oral Tablet Take by mouth. 0 Active documented as of this encounter (statuses as of 08/04/2023) Active Problems Problem Noted Date Diagnosed Date [...] as of this encounter (statuses as of 08/04/2023) Social History Tobacco Use Types Packs/Day Years [...] money to get more. Never true 06/09/2023 [place] Depression Scale Answer Date Recorded [place] Depression Scale Total 1 08/04/2023 The thought [...] file Not on file Not on file Travel History Travel Start Travel End [facility] 07/06/2023 07/06/2023 documented as of this encounter Last Filed Vital Signs Vital Sign Reading Time Taken Comments Blood Pressure 102/66 08/04/2023 8:41 AM EST Pulse - - Temperature - - Respiratory Rate - - Oxygen Saturation - - Inhaled Oxygen Concentration - - Weight 74.8 kg (165 lb) 08/04/2023 8:41 AM EST Height - - Body Mass Index 28.32 05/26/2023 9:34 AM EDT documented in this encounter Progress Notes * Estela Sue CRNP - 08/04/2023 8:45 AM EST 26w0d Good movement. Denies leaking/bleeding or cramping. Discussed OTC magnesium for leg cramps. Labs ordered for next visit, including TSH. Discussed Tdap at 28 wks. Return in 2 weeks. NORMAN Machado * Gaye Greer LPN - 08/04/2023 8:42 AM EST 26w0d Denies vaginal bleeding/rom + movement Blurry vision- does wear contacts-seems worse since Leg cramps- dose of mag? documented in this encounter Plan of Treatment Upcoming Encounters Date Type Department Care Team (Late st Contact Info) Description 08/16/2023 7:50 AM EST [facility] [address] [place] [phone] [facility] [address] [place] [address] 08/16/2023 8:15 AM EST Office Visit Gynecology/Obstetrics [facility] [address] [place] [address] Miriam Hardy CRNP [address] [place] [address] Scheduled Orders Name Type Priority Associated Diagnoses Orde r Schedule 50-G GESTATIONAL GLUCOSE, 1 HOUR Lab Routine Encounter for supervision of normal first in second trimester Expected: 08/18/2023 (Approximate), Expires: 08/04/2024 SYPHILIS ANTIBODY SCREEN WITH REFLEX TO RPR Lab Routine Encounter for supervision of normal first in second trimester Expected: 08/18/2023 (Approximate), Expires: 08/04/2024 CBC WITH WBC DIFFERENTIAL AND ANEMIA REFLEX WORKUP Lab Routine Encounter for supervision of normal first in second trimester Expected: 08/18/2023 (Approximate), Expires: 08/04/2024 TSH WITH FREE T4 IF INDICATED Lab Routine Hypothyroidism affecting in second trimester Expected: 08/04/2023 (Approximate), Expires: 08/04/2024 Health Maintenance Due Date Last Done Comments Hepatitis B (1 of 3 - 3-dose series) 1998 GARDASIL-HPV IMMUNIZATION SERIES (1 - 2-dose series) 2009 Depression Screening 2010 DTaP,Tdap,and Td Vaccines (1 - Tdap) 2017 COVID-19 Vaccine (4 - 2022-2 4 season) 2023 11/05/2021, 12/12/2020, 11/21/2020 Influenza Vaccine (FLU shot) (#1) 2023 TSH 05/26/2024 05/26/2023, 03/30/2023 Pap Smear 03/30/2026 03/30/2023 Gonorrhea / Chlamydia Screen Discontinued 03/30/2023 MENINGOCOCCAL [...] for supervision of normal first in second trimester- Primary Supervision of normal first Hypothyroidism affecting in second trimester Elevated liver enzymes Nonspecific elevation of levels of transaminase or lactic acid dehydrogenase (LDH) documented in this encounter Care Teams Occupational Health Professional Relationship Specialty Start Date End Date Eran Dickinson DO [address] [facility], [place] [address] PCP - General Family Medicine 12/28/22 documented as of this encounter
--- OUTSIDE RECORDS SUMMARY | 2023-11-12 04:36 | External Medical Summary | Summary of Care ---
Author Name Unknown Organization [facility] Address [address] [place] [address] Phone [phone] Care Team Providers Care Roller Gold Leaf Name Role Phone TeenaEran Primary Care Provider [phone] Reason for Visit * Reason Comments Outpatient Testing Encounter Details Date Type Department Care Team (Late st Contact Info) Description 07/02/2023 1:30 PM EST Laboratory Laboratory, [facility] [address] [place] [phone] [facility] [address] [place] [address] Arrived Allergies No known active allergiesdocumented as of this encounter (statuses as of 07/02/2023) Medications Medication Sig Dispensed Refills Start Date End Date Status Levothyroxine Sodium 25 MCG Oral Tablet (Levoxyl) Take 1 Tablet by mouth daily first thing in the morning. (at least 30 min prior to breakfast or other meds) 0 Active 6.75-0.2 MG Oral Tablet Take by mouth. 0 Active documented as of this encounter (statuses as of 07/02/2023) Active Problems Problem Noted Date Diagnosed Date [...] as of this encounter (statuses as of 07/02/2023) Social History Tobacco Use Types Packs/Day Years [...] money to get more. Never true 06/09/2023 [place] Depression Scale Answer Date Recorded [place] Depression Scale Total 0 03/30/2023 The thought of harming myself has occurred to me . Never 03/30/2023 Estimated Date of Delivery Comme nts Yes [...] Care Team (Late st Contact Info) Description 07/28/2023 9:45 AM EST Office Visit [facility]necology/Obstetrics [facility] [address] [place] [address] Miriam Hardy CRNP [address] [place] [address] Health Maintenance Due Date Last Done Comments Hepatitis B (1 of 3 - 3-dose series) 1998 GARDASIL-HPV IMMUNIZATION SERIES (1 - 2-dose series) 2009 Depression Screening 2010 DTaP,Tdap,and Td Vaccines (1 - Tdap) 2017 COVID-19 Vaccine (2022-2 4 season) 2023 11/05/2021, [...] filedocumented as of this encounter Care Teams Roller Gold Leaf Relationship Specialty Start Date End Date [facility] [facility] [address] PCP - General Family Medicine 12/28/22 documented as of this encounter
--- OUTSIDE RECORDS SUMMARY | 2023-11-12 04:36 | External Medical Summary | Summary of Care ---
Author Name Unknown Organization [facility] [address] [facility] [address] Phone [phone] Care Team Providers Care Casing Puller Name Role Phone Teena Eran MELENDREZ Primary Care Provider [phone] Reason for Visit * Reason Comments Return Visit Encounter Details Date Type Department Care Team (Latest Contact Info) Description 08/16/2023 8:15 AM EST Office Visit [facility]cology[facility]stetri [facility] [address] [place] [address] Miriam Hardy CRNP [address] [place] [address] Hypothyroidism affecting in third trimester*; Encounter for supervision of normal first in third trimester; Elevated liver enzymes; Need for prophylactic vaccination with combined mbrnzazndm-tyiyxhb-dknu ussis (DTP) vaccine Allergies No known active allergiesdocumented as of [...] money to get more. Never true 06/09/2023 [place] Depression Scale Answer Date Recorded [place] Depression Scale Total 1 08/04/2023 The thought [...] Sign Reading Time Taken Comments Blood Pressure 110/64 08/16/2023 8:19 AM EST Pulse - - Temperature - - Respiratory Rate - - Oxygen Saturation - - Inhaled Oxygen Concentration - - Weight 74.4 kg (164 lb) 08/16/2023 8:19 AM EST Height 162.6 cm (5' 4") 08/16/2023 8:19 AM EST Body Mass Index 28.15 08/16/2023 8:19 AM EST documented in this encounter Progress Notes * Miriam Hardy CRNP - 08/16/2023 8:32 AM EST 27w5d No concerns. Baby is active. No contractions or bleeding. Reviewed hepatology note, labs and u/s done, labs back to normal, u/s normal. No need to continue to follow. Glucola, TDAP today. NORMAN Bills documented in this encounter Nursing Notes * Asya Hdz LPN - 08/16/2023 8:42 AM EST Patient here for tdap injection. Patient doing well no complaints. Injection given IM as ordered. Patient tolerated well. Patient to follow up as directed. Patient instructed to call if any complications. Patient verbalized understanding of instructions given and her follow up appt for 2 weeks Injection site: Left Deltoid Medication Source: Dispensed stock medication * Asya Hdz LPN - 08/16/2023 8:17 AM EST 27w5d Doing glucola today Would like tdap documented in this encounter Plan of Treatment Upcoming Encounters Date Type Department Care Team (Late st Contact Info) Description 09/02/2023 1:30 PM EST Office Visit Gynecology/Obstetrics [facility] [address] [place] [address] Wilda Schmitz, [facility] [address] [place] [address] 09/13/2023 9:00 AM EST Office Visit Gynecology/Obst[facility]s [facility] [address] [place] [address] Lalo Morin MD [address] [place] [address] 09/27/2023 8:30 AM EST Office Visit Gynecology/Obstetrics [facility] [address] [place] [address] Estela Sue CRNP [address] [place] [address] 10/11/2023 8:30 AM EDT Office Visit Gynecology/Obstetrics [facility] [address] [place] [address] Caitlyn Marie DNP, CNM [address] [place] [address] 10/18/2023 8:30 AM EDT Office Visit Gynecology/Obstetrics [facility] [address] [place] [address] Estela Sue CRNP [address] [place] [address] 10/25/2023 8:45 AM EDT Office Visit Gynecology/Obst[facility]s [facility] [address] [place] [address] Estela Sue CRNP [address] [place] [address] 11/01/2023 8:45 AM EDT Office Visit Gynecology/Obstetrics [facility] [address] [place] [address] Alejandra Reeves MD [address] [place] [address] 11/08/2023 8:45 AM EDT Office Visit Gynecology/Obstetrics [facility] [address] [place] [address] Lalo Morin MD [address] [place] [address] Health Maintenance Due Date Last Done Comments [...] of transaminase or lactic acid dehydrogenase (LDH) Need for prophylactic vaccination with combined mrqecmxvck-jaqriuj-iydiinrtl (DTP) vaccine documented in this encounter Care Teams Casing Puller Relationship Specialty Start Date End Date Eran Dickinson DO [address] [place] [address] PCP - General Family Medicine 12/28/22 documented as of this encounter
--- OUTSIDE RECORDS SUMMARY | 2023-11-12 04:36 | External Medical Summary ---
Author Name Unknown Address Unknown Organization K01:LAB[facility]ATORY [facility] [place] [address] [place] [address] Laboratory Report Ordering Provider Test Date Status REAL HERNANDEZ 08/16/2023 09:08:19 Final Observation Date Value Abnormality Reference (Units ) Status Glucose [Moles/volume] in Serum or Plasma --1 hour post 50 g glucose PO 08/16/2023 09:08:19 140 Above high normal 70-129 (mg/dL) Final Performing Location LABORATORY [facility] - [address] [place] [address]
--- OUTSIDE RECORDS SUMMARY | 2023-11-12 04:36 | External Medical Summary ---
Author Name Unknown Address Unknown Organization K01:[facility] [place] [address] [place] [address] Laboratory Report Ordering Provider Test Date Status REAL HERNANDEZ 08/16/2023 09:08:19 Final Observation Date Value Abnormality Reference (Units ) Status Retic, % (auto) 08/16/2023 09:08:19 1.90 0.80-1.90 (%) Final Reticulocytes, Absolute 08/16/2023 09:08:19 74.5 31.3-100.1 (K/uL) Final Reticulocyte fraction, immature 08/16/2023 09:08:19 13.5 2.5-20.6 (%) Final Reticulocyte HGB 08/16/2023 09:08:19 32.2 29.7-37.4 (pg) Final Performing Location [facility] [place] [address] [place] [address]
--- OUTSIDE RECORDS SUMMARY | 2023-11-12 04:37 | External Medical Summary ---
Author Name Unknown Address Unknown Organization K0G:LABORATORY [facility] - [address] [place] [address] Laboratory Report Ordering Provider Test Date Status REAL HERNANDEZ 2023 11:33:51 Final Observation Date Value Abnormality Reference (Units ) Status Albumin 2023 11:33:51 4.1 3.8-5.0 (g/dL) Final AST (Aspartate aminotransferase) 2023 11:33:51 64 Above high normal 10-35 (U/L) Final Alk Phos 2023 11:33:51 64 35-130 (U/L) Final ALT (Alanine aminotransferase) 2023 11:33:51 94 Above high normal 10-35 (U/L) Final Bilirubin, Total 2023 11:33:51 0.5 <=1.2 (mg/dL) Final Bilirubin, Direct 2023 11:33:51 <0.2 0.0-0.3 (mg/dL) Final Protein 2023 11:33:51 6.6 6.0-8.3 (g/dL) Final Performing [facility] [address] [place] [address]
--- OUTSIDE RECORDS SUMMARY | 2023-11-12 04:37 | External Medical Summary ---
Author Name Unknown Address Unknown Organization : Laboratory Report Ordering Provider Test Date Status NELLY BARTON 07/02/2023 13:02:11 Final Observation Date Value Abnormality Reference (Units ) Status Smooth muscle IgG 07/02/2023 13:02:11 <20 <2 0 (U) Final Reference Range:
<20 U: Negative
>or=20 U: Positive
Antibodies recognizing actin are the main component
of smooth muscle antibodies associated with auto-
immune liver disease. Actin antibodies are found in
approximately 75% of patients with autoimmune
hepatitis (AIH) type 1, approximately 65% of patients
with autoimmune cholangitis, approximately 30% of
patients with primary biliary cirrhosis and
approximately 2% of healthy controls. High values are
closely correlated with AIH type 1.

Test Performed at:
[employer] [facility]
[address] [facility]
[place] [address]
Jordon Helm M.D., Ph.D.,Director of Laboratories Performing Location
--- OUTSIDE RECORDS SUMMARY | 2023-11-12 04:37 | External Medical Summary | Summary of Care ---
Author Name Unknown Organization [facility] Address [address] [facility] [place] [address] Phone [phone] Care Team Providers Care Appeals Examiner Name Role Phone Teena Eran MELENDREZ Primary Care Provider [phone] Reason for Visit * Reason Comments Return Visit Encounter Details Date Type Department Care Team (Late st Contact Info) Description 2023 11:45 AM EST Office Visit Gynecology[facility]Obstetric s [facility] [address] [place] [address] Estela Sue CRNP [address] [place] [address] Encounter for supervision of normal first in second trimester*; Hypothyroidism affecting in second trimester; Pruritus Allergies No known active allergiesdocumented as of this encounter (statuses as of 2023) Medications Medication Sig Dispensed Refills Start Date End Date Status Levothyroxine Sodium 25 MCG Oral Tablet (Levoxyl) Take 1 Tablet by mouth daily first thing in the morning. (at least 30 min prior to breakfast or other meds) 0 Active 6.75-0.2 MG Oral Tablet Take by mouth. 0 Active documented as of this encounter (statuses as of 2023) Active Problems Problem Noted Date Diagnosed Date Hypothyroidism affecting 03/31/2023 Overview: On Levoxyl 25 mcg daily, managed by PCP TSH q trimester TSH Results: Lab Results Component Value Date/Time TSH - [facility] 1.93 05/26/2023 10:03 AM TSH - [facility] 1.98 03/30/2023 11:46 AM Supervision of normal first 03/31/2023 Estimated Date of Delivery Comme nts Yes 11/10/2023 Based on Ultraso und documented as of this encounter (statuses as of 2023) Social History Tobacco Use Types Packs/Day Years [...] money to get more. Never true 06/09/2023 [place] Depression Scale Answer Date Recorded [place] Depression Scale Total 0 03/30/2023 The thought [...] Sign Reading Time Taken Comments Blood Pressure 100/60 2023 10:58 AM EST Pulse - - Temperature - - Respiratory Rate - - Oxygen Saturation - - Inhaled Oxygen Concentration - - Weight 72.6 kg (160 lb) 2023 10:58 AM EST Height - - Body Mass Index 27.46 05/26/2023 9:34 AM EDT documented in this encounter Progress Notes * Estela Sue CRNP - 2023 11:01 AM EST 20w0d Anatomy scan today, report in process. + cardiac activity. Feeling baby move. No bleeding. Reports 30 sec of cramping after urinating - no other urinary symptoms. Will check urine dip. Some leg cramping at night; recommend MgSO4 supplement, stretching/bath before bed. Reports itching on soles of feet, mostly at night. Worried about cholestasis - not likely at this gestational age, but will check LFTs and bile acids. is likely getting a job in [place], and they would then be there for the . She is planning to visit an OB there over the . Will provide current records, and can sign release. 4 week return NORMAN Machado documented in this encounter Nursing Notes * Gaye Greer LPN - 2023 10:59 AM EST 20w0d Denies vaginal bleeding/rom + movement Cramping after urination- does not last long Glute cramping when sleeping Anatomy scan today documented in this encounter Plan of Treatment Upcoming Encounters Date Type Department Care Team (Late st Contact Info) Description 07/28/2023 9:45 AM EST Office Visit Gynecology/Obstetrics [facility] [address] [place] [address] Miriam Hardy CRNP [address] [place] [address] Scheduled Orders Name Type Priority Associated Diagnoses Orde r Schedule BILE ACIDS, FRACTIONATED AND TOTAL Lab Routine Pruritus Expected: 2023 (Approximate), Expires: 2024 HEPATIC FUNCTION PANEL Lab Routine Pruritus Expected: 2023 (Approximate), Expires: 2024 URINALYSIS, POINT OF CARE (ENTER/EDIT) Point of Care Testing Routine Encounter for supervision of normal first in second trimester Ordered: 2023 Health Maintenance Due Date Last Done Comments [...] normal first Hypothyroidism affecting in second trimester Pruritus Unspecified pruritic disorder documented in this encounter Care Teams Appeals Examiner Relationship Specialty Start Date End Date Eran Dickinson DO [address] [place] [address] PCP - General Family Medicine 12/28/22 documented as of this encounter
--- OUTSIDE RECORDS SUMMARY | 2023-11-12 04:37 | External Medical Summary | Summary of Care ---
Author Name Unknown Organization [facility] Address [address] [place] [address] Phone [phone] Care Team Providers Care Local Hazmat Driver Name Role Phone TeenaEran Primary Care Provider [phone] Reason for Visit * Reason Comments Outpatient Testing Encounter Details Date Type Department Care Team (Late st Contact Info) Description 2023 12:00 PM EST Laboratory Laboratory, [facility] [address] [place] [id number] [facility] [address] [place] [address] Pruritus Allergies No known active allergiesdocumented as [...] money to get more. Never true 06/09/2023 [place] Depression Scale Answer Date Recorded [place] Depression Scale Total 0 03/30/2023 The thought [...] 07/28/2023 9:45 AM EST [facility] [address] [place] [address] Miriam Hardy CRNP [address] [place] [address] Pending Results Name Type Priority Associated Diagnoses Date /Time BILE ACIDS, FRACTIONATED AND TOTAL Lab Routine Pruritus 2023 11:33 AM EST HEPATIC FUNCTION PANEL Lab Routine Pruritus 2023 11:33 AM EST Health Maintenance Due Date Last [...] as of this encounter Visit Diagnoses Diagnosis Pruritus Unspecified pruritic disorder documented in this encounter Care Teams Local Hazmat Driver Relationship Specialty Start Date End Date Eran Dickinson DO [address] [place] [address] PCP - General Family Medicine 12/28/22 documented as of this encounter
--- OUTSIDE RECORDS SUMMARY | 2023-11-12 04:37 | External Medical Summary ---
Author Name Unknown Address Unknown Organization [id number]:LABORATORY [facility] [place] - [address] [place] [address] [place] [address] Laboratory Report Ordering Provider Test Date Status NELLY BARTON 07/02/2023 13:02:11 Final Observation Date Value Abnormality Reference (Units ) Status Hep A IgM 07/02/2023 13:02:11 Negative Negative Final Performing Location LABORATORY [facility] - [address] [place] [address]
--- OUTSIDE RECORDS SUMMARY | 2023-11-12 04:37 | External Medical Summary ---
Author Name Unknown Address Unknown Organization [id number]:LABORATORY [place] [address] [place] [address] Laboratory Report Ordering Provider Test Date Status NELLY BARTON 07/02/2023 13:02:11 Final Observation Date Value Abnormality Reference (Units) Status Hepatitis B virus surface Ab [Units/volume] in Serum or Plasma by Immunoassay 07/02/2023 13:02:11 19.8 (mIU/mL) Final Hepatitis B virus surface Ab [Presence] in Serum by Immunoassay 07/02/2023 13:02:11 Positive Final HEPATITIS B SURFACE ANTIBODY, INTERPRETATION 07/02/2023 13:02:11 Immune to Hepatitis B Virus Final POSITIVE: >=11.5 mIU/mL
INDETERMINATE: 8.5-<11.5 mIU/mL
NEGATIVE: <8.5 mIU/mL Performing Location LAB[facility]ATORY [place] [address] [place] [address]
--- OUTSIDE RECORDS SUMMARY | 2023-11-12 04:37 | External Medical Summary ---
Author Name Unknown Address Unknown Organization [id number]:LABORATORY [facility] [address] [place] [address] Laboratory Report Ordering Provider Test Date Status NELLY BARTON 07/02/2023 13:02:11 Final Observation Date Value Abnormality Reference (Units ) Status Iron 07/02/2023 13:02:11 97 33-151 (ug /dL) Final Iron-binding capacity 07/02/2023 13:02:11 408 250-425 (ug/dL) Final Transferrin Sat % 07/02/2023 13:02:11 24 15 -55 (%) Final Performing Location LABORATORY [facility] - [address] [place] [address]
--- OUTSIDE RECORDS SUMMARY | 2023-11-12 04:37 | External Medical Summary ---
Author Name Unknown Address Unknown Organization [id number]:LABORATORY [facility] - [address] [place] [address] Laboratory Report Ordering Provider Test Date Status NELLY BARTON 07/02/2023 13:02:11 Final Observation Date Value Abnormality Reference (Units ) Status Albumin 07/02/2023 13:02:11 4.2 3.8-5.0 (g/dL) Final AST (Aspartate aminotransferase) 07/02/2023 13:02:11 19 10-35 (U/L) Final Alk Phos 07/02/2023 13:02:11 65 35-130 (U/L) Final ALT (Alanine aminotransferase) 07/02/2023 13:02:11 20 10-35 (U/L) Final Bilirubin, Total 07/02/2023 13:02:11 0.6 <=1.2 (mg/dL) Final Bilirubin, Direct 07/02/2023 13:02:11 <0.2 0.0-0.3 (mg/dL) Final Protein 07/02/2023 13:02:11 6.8 6.0-8.3 (g/dL) Final Performing Location [facility] [address] [place] [address]
--- OUTSIDE RECORDS SUMMARY | 2023-11-12 04:37 | External Medical Summary ---
Author Name Unknown Address Unknown Organization : Laboratory Report Ordering Provider Test Date Status MICKNELLY LINDSAY 07/02/2023 13:02:11 Final Observation Date Value Abnormality Reference (Units ) Status Ceruloplasmin 07/02/2023 13:02:11 54 Above high ibis l 18-53 (mg/dL) Final
Test Performed at:
[email or web address]
[address] [place] [address]
Jordon Helm M.D., Ph.D.,Director of Laboratories Performing Location
--- OUTSIDE RECORDS SUMMARY | 2023-11-12 04:37 | External Medical Summary ---
Author Name Unknown Address Unknown Organization [id number]:LABORATORY [facility] [place] - [address] [place] [address] Laboratory Report Ordering Provider Test Date Status NELLY BARTON 07/02/2023 13:02:11 Final Observation Date Value Abnormality Reference (Units ) Status Ferritin 07/02/2023 13:02:11 62 13-150 (ng /mL) Final Performing Location LABORATORY [facility] - [address] [place] [address]
--- OUTSIDE RECORDS SUMMARY | 2023-11-12 04:37 | External Medical Summary ---
Author Name Unknown Address Unknown Organization [id number]:LABORATORY [facility] - [address] [place] [address] Laboratory Report Ordering Provider Test Date Status NELLY BARTON 07/02/2023 13:02:11 Final Observation Date Value Abnormality Reference (Units ) Status Hep A, IgG and/or IgM 07/02/2023 13:02:11 Positive Abnormal Negative Final Performing Location LABORATORY [facility] - [address] [place] [address]
--- OUTSIDE RECORDS SUMMARY | 2023-11-12 04:37 | External Medical Summary ---
Author Name Unknown Address Unknown Organization [id number]:LABORATORY [facility] - [address] [place] [address] Laboratory Report Ordering Provider Test Date Status NELLY BARTON 07/02/2023 13:02:11 Final Observation Date Value Abnormality Reference (Units ) Status IgA 07/02/2023 13:02:11 148 70-400 (mg /dL) Final Performing Location LABORATORY [facility] - [address] [place] [address]
--- OUTSIDE RECORDS SUMMARY | 2023-11-12 04:37 | External Medical Summary ---
Author Name Unknown Address Unknown Organization : Laboratory Report Ordering Provider Test Date Status MICKNELLY 07/02/2023 13:02:11 Final Observation Date Value Abnormality Reference (Units ) Status Alpha-1 antitrypsin 07/02/2023 13:02:11 245 Above high normal 83-199 (mg/dL) Final
Test Performed at:
[facility]
[address]
[place] [address]
Jordon Helm M.D., Ph.D.,Director of Laboratories Performing Location
--- OUTSIDE RECORDS SUMMARY | 2023-11-12 04:37 | External Medical Summary | Summary of Care ---
Author Name Unknown Organization [facility] Address [address] [facility] [address] [address] Phone [phone] Care Team Providers Care Corporate Pilot Name Role Phone Teena Eran MELENDREZ Primary Care Provider [phone] Reason for Visit * Reason Comments Return Visit Encounter Details Date Type Department Care Team (Late st Contact Info) Description 05/26/2023 9:45 AM EDT Office Visit Gynecology/Obstetric s [facility] [address] [place] [address] Miriam Hardy CRNP [address] [place] [address] Encounter for supervision of normal first in second trimester*; Hypothyroidism affecting in second trimester Allergies No known active allergiesdocumented as of this encounter (statuses as of 05/26/2023) Medications Medication Sig Dispensed Refills Start Date End Date Status Levothyroxine Sodium 25 MCG Oral Tablet (Levoxyl) Take 1 Tablet by mouth daily first thing in the morning. (at least 30 min prior to breakfast or other meds) 0 Active 6.75-0.2 MG Oral Tablet Take by mouth. 0 Active documented as of this encounter (statuses as of 05/26/2023) Active Problems Problem Noted Date Diagnosed Date Hypothyroidism affecting 03/31/2023 Overview: On Levoxyl 25 mcg daily, managed by PCP TSH q trimester TSH Results: Lab Results Component Value Date/Time TSH - [facility] 1.98 03/30/2023 11:46 AM Supervision of normal first 03/31/2023 Estimated Date of Delivery Comme nts Yes 11/10/2023 Based on Ultraso und documented as of this encounter (statuses as of 05/26/2023) Social History Tobacco Use Types Packs/Day Years Used Date Smoking Tobacco: Never Smokeless Tobacco: Never Alcohol Use Standard Drinks/Week Comments Not Currently 0 (1 standard drink = 0.6 oz pur e alcohol) Hunger Vital Sign Answer Date Recorded Within the past 12 months, y ou worried that your food would run out before you got the money to buy more. Never true 03/25/20 23 Within the past 12 months, t he food you bought just didn't last and you didn't have money to get more. Never true 03/25/2023 [place] Depression Scale Answer Date Recorded [place] Depression Scale Total 0 03/30/2023 The thought [...] Sign Reading Time Taken Comments Blood Pressure 100/68 05/26/2023 9:34 AM EDT Pulse - - Temperature - - Respiratory Rate - - Oxygen Saturation - - Inhaled Oxygen Concentration - - Weight 69.7 kg (153 lb 9.6 oz) 05/26/2023 9:34 A M EDT Height 162.6 cm (5' 4") 05/26/2023 9:34 AM EDT Body Mass Index 26.37 05/26/2023 9:34 AM EDT documented in this encounter Progress Notes * Miriam Hardy CRNP - 05/26/2023 9:58 AM EDT 16w No concerns. N/v almost completely resolved. No bleeding. Taking thyroid meds as ordered. TSH today. Hasn't felt FM yet. Anatomy u/s with next visit. NORMAN Bills * Luciana German LPN - 05/26/2023 9:38 AM EDT 16w0d Pt only having n/v with brushing teeth now. Pt wanted to discuss hx of large babies in family, over10 lbs, on maternal side. documented in this encounter Plan of Treatment Upcoming Encounters Date Type Department Care Team (Late st Contact Info) Description 2023 9:45 AM EST Imaging Radiology [facility] [address] [facility] [place] [address] 2023 11:45 AM EST Office Visit Gynecology/Obstetrics [facility] [address] [facility] [place] [address] Estela Sue CRNP [address] [facility] [place] [address] Pending Results Name Type Priority Associated Diagnoses Date /Time TSH WITH FREE T4 IF INDICATED Lab Routine Hypothyroidism affecting in second trimester 05/26/2023 10:03 AM EDT Scheduled Orders Name Type Priority Associated Diagnoses Orde r Schedule US PREG SINGLE/1ST GEST, 14 WEEKS OR LATER Medical Imaging Routine Encounter for supervision of normal first in second trimester Expected: 06/25/2023 (Approximate), Expires: 06/25/2024 TSH WITH FREE T4 IF INDICATED Lab Routine Hypothyroidism affecting in second trimester Expected: 05/26/2023 (Approximate), Expires: 05/26/2024 Health Maintenance Due Date Last Done Comments Hepatitis B (1 of 3 - 3-dose series) 1998 GARDASIL-HPV IMMUNIZATION SERIES (1 - 2-dose series) 2009 Depression Screening 2010 DTaP,Tdap,and Td Vaccines (1 - Tdap) 2017 COVID-19 Vaccine (4 - 2022-2 4 season) 2023 11/05/2021, 12/12/2020, 11/21/2020 Influenza Vaccine (FLU shot) (#1) 2023 Gonorrhea / Chlamydia Screen 03/30/2024 03/30/2023 TSH 03/30/2024 03/30/2023 Pap Smear 03/30/2026 03/30/2023 MENINGOCOCCAL (MENACTRA/MENVEO) Aged Out No longer eligible b ased on patient's age to complete this topic Pneumococcal Vaccine: Pediatrics (0 to 5 Years) and At-Risk Patients (6 to 64 Years) Aged Out No longer eligible b ased on patient's age to complete this topic documented as of this encounter Medical Devices Not on filedocumented as of this encounter Visit Diagnoses Diagnosis Encounter for supervision of normal first in second trimester- Primary Supervision of normal first Hypothyroidism affecting in second trimester documented in this encounter Care Teams Corporate Pilot Relationship Specialty Start Date End Date Eran Dickinson DO [address] [place] [address] PCP - General Family Medicine 12/28/22 documented as of this encounter
--- OUTSIDE RECORDS SUMMARY | 2023-11-12 04:37 | External Medical Summary | Summary of Care ---
Author Name Unknown Organization [facility] Address [address] [facility] [place] [address] Phone [phone] Care Team Providers Care Jukebox Operator Name Role Phone Teena Eran MELENDREZ Primary Care Provider [phone] Reason for Visit * Reason Comments Return Visit Encounter Details Date Type Department Care Team (Late st Contact Info) Description 2023 11:45 AM EST Office Visit Gynecology/Obstetric s [facility] [address] [place] [address] Estela Sue CRNP [address] [place] [address] Encounter for supervision of normal first in [...] Lab Results Component Value Date/Time TSH - [facility] 1.93 05/26/2023 10:03 AM TSH - [facility] [...] money to get more. Never true 06/09/2023 [place] Depression Scale Answer Date Recorded [place] Depression Scale Total 0 03/30/2023 The thought [...] acids. is likely getting a job in [place], and they would then be there for the . She is planning to visit an OB there over the . Will provide current records, and can sign release. 4 week return NORMAN Machado documented in this encounter Nursing Notes * Gaye Rojas LPN - 2023 10:59 AM EST 20w0d Denies vaginal bleeding/rom + movement Cramping after urination- does not last long Glute cramping when sleeping Anatomy scan today documented in this encounter Miscellaneous Notes * Addendum Note - Gaye Rojas LPN - 2023 11:25 AM ESTAddended by: GAYE ROJAS on: 2023 11:25 AM Modules accepted: Orders documented in this encounter Plan of Treatment Upcoming Encounters Date Type Department Care Team (Late st Contact Info) Description 07/28/2023 9:45 AM EST Office Visit Gynecology/Obstetrics [facility] [address] [place] [address] Miriam Hardy CRNP [address] [place] [address] Scheduled Orders Name Type Priority Associated Diagnoses Orde r Schedule BILE ACIDS, FRACTIONATED AND TOTAL Lab Routine Pruritus Expected: 2023 (Approximate), Expires: 2024 HEPATIC FUNCTION PANEL Lab Routine Pruritus Expected: 2023 (Approximate), Expires: 2024 Health Maintenance Due Date Last Done Comments [...] Procedure Name Priority Date/Time Associated Diagnosis Comments URINALYSIS, POINT OF CARE (ENTER/EDIT) Routine 2023 Encounter for supervision of normal first in second trimester documented in this encounter Results * URINALYSIS, POINT OF CARE (ENTER/EDIT) (2023) Color, Urine Yellow Yellow or Light Yellow Clarity, Urine Clear Clear Glucose, Urine Negative Negative mg/dL Bilirubin, Urine Negative Negative Ketone, Urine Negative Negative mg/dL Specific [place], Urine 1.020 1.003 - 1.030 Blood, Urine Negative Negative pH, Urine 7.0 5.0 - 7.5 units Protein, Urine Negative Negative mg/dL Urobilinogen, Urine 0.2 0.2 - 1.0 mg/dL Nitrite, Urine Negative Negative Esterase, Urine Negative Negative Urine 2023 Estela Coateser [facility] POINT O F CARE TEST ENTER/EDIT ORDERABLES documented in this encounter Visit Diagnoses Diagnosis Encounter for supervision of normal first in second trimester- Primary Supervision of normal first Hypothyroidism affecting in second trimester Pruritus Unspecified pruritic disorder documented in this encounter Care Teams Jukebox Operator Relationship Specialty Start Date End Date Eran Dickinson DO [address] [place] [address] PCP - General Family Medicine 12/28/22 documented as of this encounter
--- OUTSIDE RECORDS SUMMARY | 2023-11-12 04:37 | External Medical Summary ---
Author Name Unknown Address Unknown Organization K01:LABORATORY [facility] [place] [facility] [address] [place] [address] Laboratory Report Ordering Provider Test Date Status NELLY BARTON 07/02/2023 13:02:11 Final Observation Date Value Abnormality Reference (Units ) Status Hepatitis B virus core Ab [Presence] in Serum 07/02/2023 13:02:11 Negative Negative Final Performing Location LABORATORY [facility] [place] - [address] [place] [address]
--- OUTSIDE RECORDS SUMMARY | 2023-11-12 04:37 | External Medical Summary ---
Author Name Unknown Address Unknown Organization K01:LABORATORY [facility] [place] [place] - [facility] [address] [facility] [address] Laboratory Report Ordering Provider Test Date Status NELLY BARTON 07/02/2023 13:02:11 Final Observation Date Value Abnormality Reference (Units ) Status Tissue transglutaminase IgA Ab [Presence] in Serum by Immunoassay 07/02/2023 13:02:11 Negative Negative Final Tissue transglutaminase IgA Ab [Units/volume] in Serum by Immunoassay 07/02/2023 13:02:11 0.3 <7 (U/mL) Final Performing Location LABORATORY [facility] [place] [place] - [facility] [place] [address]
--- OUTSIDE RECORDS SUMMARY | 2023-11-12 04:37 | External Medical Summary ---
Author Name Unknown Address Unknown Organization : Laboratory Report Ordering Provider Test Date Status REAL HERNANDEZ 2023 11:33:51 Final Observation Date Value Abnormality Reference (Units ) Status Bile acid [Moles/volume] in Serum --fasting 2023 11:33:51 SEE BELOW Final TESTS--------- ----RESULTS--------UNITS--REF. RANGE---
Cholic Acid 0.7 umol/L < OR = 1.8
Deoxycholic Acid 0.5 umol/L < OR = 2.4
Chenodeoxycholic Acid 0.9 umol/L < OR = 3.1
Total Bile Acids 2.1 umol/L < OR = 6.8
This test was developed and its analytical
performance characteristics have been determined
by [facility]. It has not been cleared or
approved by FDA. This assay has been validated
pursuant to the CLIA regulations and is used for
clinical purposes.
Test performed by [facility]
[address],
[place] [address]

Truck Body Builder: Victorina Leal MD,PHD,KENNY Performing Location
--- OUTSIDE RECORDS SUMMARY | 2023-11-12 04:37 | External Medical Summary | Summary of Care ---
Author Name Unknown Organization [facility] Address [address] [place] [place] [place] [address] Phone [phone] Care Team Providers Care Venetian Blind Cleaner And Repairer Name Role Phone Teena Eran MELENDREZ Primary Care Provider [phone] Reason for Referral * Evaluate & Treat - Unlimited Visits (Within 3 days (urgent)) - Pending Review Specialty Diagnoses / Procedures Referred By Gabriela stafford Referred To Contact Gastroenterology Diagnoses Elevated liver enzymes Estela Sue CRNP [address] [place] [place] [id number] Referral ID Status Reason Start Date Expiration Date Visits Requested Visits Authorized [id number] Pending Review Specialty Services Required [phone] Question Answer Referral Priority Within 3 days (urgent) Where should this appointment be scheduled? [facility] For what condition is the patient being referred? Liver conditions Comments 20 wk , elevated AST/ALT Reason for Visit * Reason Onset Date Comments Test Results 2023 Encounter Details Date Type Department Care Team (Late st Contact Info) Description 2023 Telephone Gynecology/Obstetrics [facility] [address] [place] [phone] Estela Sue CRNP [address] [place] [phone] Test Results Allergies No known active allergiesdocumented [...] Diagnosed Date Elevated liver enzymes 2023 Overview: Hepatic Panel Results: Results for orders placed [...] money to get more. Never true 06/09/2023 [place] Depression Scale Answer Date Recorded [place] Depression Scale Total 0 03/30/2023 The thought [...] Telephone Encounter - Michelle Huff RN - 2023 1:33 PM EST Pt is aware. * Telephone Encounter - Estela Sue CRNP - 2023 1:20 PM EST Her liver labs are elevated; I am going to send a referral for her to see a liver specialist. I also sent a message to [facility] to see if we need to check anything else from an OB standpoint. NORMAN Machado documented in this encounter Plan of Treatment Upcoming Encounters Date Type Department Care Team (Late st Contact Info) Description 07/28/2023 9:45 AM EST [facility] [address] [phone] Miriam Hardy CRNP [address] [phone] Scheduled Referrals Name Type Priority Associated Diagnoses Orde r Schedule HEPATOLOGY REFERRAL OP Referral Within 3 days (urgent) Elevated liver enzymes Ordered: 2023 Health Maintenance Due Date Last [...] this encounter Visit Diagnoses Diagnosis Elevated liver enzymes- Primary Nonspecific elevation of levels of transaminase or lactic acid dehydrogenase (LDH) documented in this encounter Care Teams Venetian Blind Cleaner And Repairer Relationship Specialty Start Date End Date Eran Dickinson DO [address] [place] [address] PCP - General Family Medicine 12/28/22 documented as of this encounter
--- OUTSIDE RECORDS SUMMARY | 2023-11-12 04:37 | External Medical Summary | Summary of Care ---
Author Name Unknown Organization [facility] Address [address] [place] [address] Phone [phone] Care Team Providers Care Leasing Sales Consultant Name Role Phone Teena Eran MELENDREZ Primary Care Provider [phone] Reason for Visit * Reason Comments Outpatient Testing Encounter Details Date Type Department Care Team (Late st Contact Info) Description 05/26/2023 10:10 AM EDT Laboratory Laboratory, [facility] [address] [place] [address] [facility] [address] [place] [address] Hypothyroidism affecting in second trimester Allergies No [...] Lab Results Component Value Date/Time TSH - [facility] 1.98 03/30/2023 11:46 AM Supervision of normal [...] money to get more. Never true 03/25/2023 [place] Depression Scale Answer Date Recorded [place] Depression Scale Total 0 03/30/2023 The thought [...] Description 2023 9:45 AM EST Imaging Radiology [facility] [address] [place] [place] [address] 2023 11:45 AM EST Office Visit Gynecology/Obstetrics [facility] [address] [place] [place] [address] BackerEstela CRNP [address] [place] [phone] Pending Results Name Type Priority Associated Diagnoses Date /Time TSH WITH FREE T4 IF INDICATED Lab Routine Hypothyroidism affecting in second trimester 05/26/2023 10:03 AM EDT Health Maintenance Due Date Last [...] encounter Visit Diagnoses Diagnosis Hypothyroidism affecting in second trimester documented in this encounter Care Teams Leasing Sales Consultant Relationship Specialty Start Date End Date Eran Dickinson DO [address] [place] [address] PCP - General Family Medicine 12/28/22 documented as of this encounter
--- OUTSIDE RECORDS SUMMARY | 2023-11-12 04:37 | External Medical Summary | Summary of Care ---
Author Name Unknown Organization [facility] Address [address] [place] [address] Phone [phone] Care Team Providers Care Sewing Machine Operator Semiautomatic Name Role Phone Eran Dickinson DO Primary Care Provider [phone] Reason for Visit * Evaluate & Treat - Unlimited Visits (Within 3 days (urgent)) - Pending Review Specialty Diagnoses / Procedures Referred By Gabriela stafford Referred To Contact Gastroenterology Diagnoses Elevated liver enzymes Estela Sue CRNP [address] [place] [address] Referral ID Status Reason Start Date Expiration Date Visits Requested Visits Authorized [id number] Pending Review Specialty Services Required [phone] Encounter Details Date Type Department Care Team (Late st Contact Info) Description 06/28/2023 8:00 AM EST Telemedicine Hepatology, [address] [address] Tracy Malagon DO [address] [place] [address] Abnormal LFTs* Allergies No known active allergiesdocumented as of this encounter (statuses as of 06/28/2023) Medications Medication Sig Dispensed Refills Start Date End Date Status Levothyroxine Sodium 25 MCG Oral Tablet (Levoxyl) Take 1 Tablet by mouth daily first thing in the morning. (at least 30 min prior to breakfast or other meds) 0 Active 6.75-0.2 MG Oral Tablet Take by mouth. 0 Active documented as of this encounter (statuses as of 06/28/2023) Active Problems Problem Noted Date Diagnosed Date [...] as of this encounter (statuses as of 06/28/2023) Social History Tobacco Use Types Packs/Day Years [...] money to get more. Never true 06/09/2023 [place] Depression Scale Answer Date Recorded [place] Depression Scale Total 0 03/30/2023 The thought [...] on file documented as of this encounter Progress Notes * Tracy Malagon, DO - 06/28/2023 8:05 AM EST Images from the original note were not included. Patient location: HOME. I was in a hospital or clinic location. After connecting through [employer],patient was verified with two unique identifiers. Patient (or authorized legal direct sales representative) was then informed that this was a Telemedicine visit and being conducted confidentially over secure lines. Methods to assure confidentiality were taken. Patient acknowledged consent and understanding of pr ivacy and security of the Telemedicine visit. The patient agreed to participate. CC: abnormal LFTs HPI: Sherri Rutledge is a 23 year old female referred by NORMAN Salas for evaluation ofabnormal LFTs. She has PMH of hypothyroidism. Currently around 20 weeks. She has not had any issues with this and everything has been normal. Had labs checked last week found to have an elevated ALT to 94 and AST of 64 with normal ALP and total bilirubin. CBC unremarkable. Hep B/C negative. She states earlier this year in December she had LFTschecked and all of her LFTs were normal. Just found to have elevated LFTs last week. She denies anyOTC supplements other than her vitamins. Denies herbal supplement use. Prior to did not drink any alcohol, no history of drug use, no tobacco use. No family history of liver disease or HCC. She believes some family members on her mother's side had colon cancer but she is not sure who or what age. She states she is moving to [place] at the end of September. Past Medical History: Diagnosis Date Hypothyroid Current Outpatient Medications Medication Sig Dispense Refill Levothyroxine Sodium 25 MCG Oral Tablet (Levoxyl) Take 1 Tablet by mouth daily first thing in the morning. (at least 30 min prior to breakfast or other meds) 6.75-0.2 MG Oral Tablet Take by mouth. No current facility-administered medications for this visit. Review of patient's allergies indicates: No Known Allergies Social History Socioeconomic History Marital status: Spouse name: Not on file Number of children: Not on file Years of education: Not on file Highest education level: Not on file Occupational History Not on file Tobacco Use Smoking status: Never Smokeless tobacco: Never Substance and Sexual Activity Alcohol use: Not Currently Drug use: Never Sexual activity: Yes Partners: Male Other Topics Concern Not on file Social History Narrative Not on file Social Determinants of Health Financial Resource Strain: Not on file Food Insecurity: No Food Insecurity (06/09/2023) Hunger Vital Sign Worried About Running Out of Food in the Last Year: Never true Ran Out of Food in the Last Year: Never true Transportation Needs: Not on file Physical Activity: Not on file Stress: Not on file Social Connections: Not on file Intimate Partner Violence: Not on file Housing Stability: Not on file Family History Problem Relation Age of Onset Other (hypothyroid) Mother Other (hypothyroid) Grandmother (Maternal) Review of Systems: Constitutional: No report of fever, chills, night sweats. There have been no non-intentional weightchanges. Eyes: No recent changes in visual acuity or blurring of vision. ENT: No change in auditory acuity, sense of smell or taste. CV: No chest pain, palpitations, dyspnea on exertion. Respiratory: No wheezing, cough, sputum production. : No dysuria, polyuria, change in urinary frequency. GI: Per HPI, otherwise negative. Psychiatric: No chronic changes in mood, affect or sensorium. Musculoskeletal: No myalgias, arthralgias, or joint pains. Neurological: No change in gait, change in maintenance of balance, neurologic injuries. Physical Exam- no vitals obtained as this was a video visit Well developed, well nourished female in no apparent distress. Eyes: Conjunctivae and sclerae are clear and non-icteric. Pulm: No respiratory distress Psychiatric: The patient is alert and oriented in all four spheres. Mood is euthymic. Affect is appropriate for the situation. Neuro: AA0x3 Labs: Reviewed Component Ref Range & Units 5 d ago Albumin 3.8 - 5.0 g/dL 4.1 AST 10 - 35 U/L 64 High Alkaline Phosphatase 35 - 130 U/L 64 ALT 10 - 35 U/L 94 High Bilirubin, Total <=1.2 mg/dL 0.5 Bilirubin, Direct 0.0 - 0.3 mg/dL <0.2 Protein 6.0 - 8.3 g/dL 6.6 Component Ref Range & Units 3 mo ago TSH 0.27 - 4.20 uIU/mL 1.98 WBC 4.00 - 10.80 K/uL 9.65 RBC 3.85 - 5.15 M/uL 4.46 HGB 12.0 - 15.3 g/dL 12.6 Comment: Anemia reflex testing triggers on a HGB < 12.0 for Females and HGB < 13.0 for Males in accordance with the WHO Anemia Guidelines Anemia reflex testing triggers on a HGB < 12.0 for Females and HGB < 13.0 for Males in accordance with the WHO Anemia Guidelines HCT 36.0 - 45.2 % 39.3 MCV 81.5 - 97.5 fL 88.1 MCH 27.0 - 34.0 pg 28.3 MCHC 32.0 - 36.0 g/dL 32.1 RDW 11.5 - 15.5 % 12.9 PLT 140 - 400 K/uL 315 MPV 6.6 - 11.1 fL 10.9 nRBCs <=0 /100 WBCs 0 ASSESSMENT: Sherri Rutledge is a 23 year old female referred by NORMAN Salas for evaluation of abnormal LFTs. She has PMH of hypothyroidism. Currently around 20 weeks. Plan: 1. Elevated liver enzymes. Will obtain serological work up to check for causes of liver disease andan abdominal ultrasound to assess the liver. This may just be elevated due to pregancy. Will plan to monitor LFTs monthly and a standing order is in. She is going to be moving to [place] at the end of September so I did inform her that OB or PCP can monitor her LFTs down there. 2. Vaccination. After determining the immune status for HAV/HBV, will recommend appropriate vaccines. 3. Follow up in 6 months Tracy Malagon DO Gastroenterology and Hepatology I spent a total of 45 minutes on the date of service in review of patient's record, and previously obtained information in person and appropriate medical visit, discussion and education of plan, withpatient and/or caregiver, placing orders for tests/referral/procedures as medically necessary and documentation of pertinent clinical information in patient's medical records for their visit today. documented in this encounter Plan of Treatment Upcoming Encounters Date Type Department Care Team (Late st Contact Info) Description 07/28/2023 9:45 AM EST Office Visit Gynecology/Obstetrics [facility] [address] [place] [address] Miriam Hardy CRNP [address] [place] [phone] Scheduled Orders Name Type Priority Associated Diagnoses Order Schedule US ABDOMEN LIMITED Medical Imaging Routine Abnormal LFTs Ordered: 06/28/2023 ACTIN (SMOOTH MUSCLE) ANTIBODY (IGG) Lab Routine Abnormal LFTs Ordered: 06/28/2023 [id number], QN Lab Routine Abnormal LFTs Ordered: 06/28/2023 CERULOPLASMIN Lab Routine Abnormal LFTs Ordered: 06/28/2023 TISSUE TRANSGLUTAMINASE IGA ANTIBODY Lab Routine Abnormal LFTs Ordered: 06/28/2023 FERRITIN Lab Routine Abnormal LFTs Ordered: 06/28/2023 PT INR Lab Routine Abnormal LFTs Ordered: 06/28/2023 SERUM PROTEIN ELECTROPHORESIS REFLEX PROFILE Lab Routine Abnormal LFTs Ordered: 06/28/2023 MITOCHONDRIAL ANTIBODY Lab Routine Abnormal LFTs Ordered: 06/28/2023 IRON SCREEN, INCLUDING TIBC Lab Routine Abnormal LFTs Ordered: 06/28/2023 IGA Lab Routine Abnormal LFTs Ordered: 06/28/2023 HEPATITIS A ANTIBODIES IGG AND IGM Lab Routine Abnormal LFTs Ordered: 06/28/2023 HEPATITIS A ANTIBODY IGM Lab Routine Abnormal LFTs Ordered: 06/28/2023 HEPATITIS B CORE ANTIBODIES IGG AND IGM Lab Routine Abnormal LFTs Ordered: 06/28/2023 HEPATITIS B SURFACE ANTIBODY Lab Routine Abnormal LFTs Ordered: 06/28/2023 HEPATIC FUNCTION PANEL Lab Routine Abnormal LFTs Ordered: 06/28/2023 Health Maintenance Due Date Last Done Comments [...] as of this encounter Visit Diagnoses Diagnosis Abnormal LFTs- Primary Other abnormal blood chemistry documented in this encounter Care Teams Sewing Machine Operator Semiautomatic Relationship Specialty Start Date End Date Eran Dickinson DO [address] [place] [address] PCP - General Family Medicine 12/28/22 documented as of this encounter
--- OUTSIDE RECORDS SUMMARY | 2023-11-12 04:37 | External Medical Summary ---
Author Name Unknown Address Unknown Organization [id number]:[facility] [place] [address] Laboratory Report Ordering Provider Test Date Status NELLY BARTON 07/02/2023 13:02:11 Final Warfarin Therapy
INR: 2 .0-3.0 conventional anticoagulation
INR: 2.5- 3.5 high intensity anticoagulation Observation Date Value Abnormality Reference (Units ) Status PT 07/02/2023 13:02:11 13.3 11.6-15.2 (seconds) Final INR 07/02/2023 13:02:11 1.0 0.8-1.2 Final Performing Location [facility] [place] [address]
--- OUTSIDE RECORDS SUMMARY | 2023-11-12 04:37 | External Medical Summary ---
Author Name Unknown Address Unknown Organization [id number] [place] [address] [place] [address] Laboratory Report Ordering Provider Test Date Status TEREZA ALFREDO 05/26/2023 10:03:43 Final Observation Date Value Abnormality Reference (Units ) Status TSH 05/26/2023 10:03:43 1.93 0.27-4.20 (uIU/mL) Final Performing Location [facility] [place] [address] [facility] [place] [address]
--- OUTSIDE RECORDS SUMMARY | 2023-11-12 04:37 | External Medical Summary ---
Author Name Unknown Address Unknown Organization [id number]:[facility] [place] [address] [place] [address] Laboratory Report Ordering Provider Test Date Status NELLY BARTON 07/02/2023 13:02:11 Final Observation Date Value Abnormality Reference (Units ) Status Mitochondria M2 Ab [Presence] in Serum 07/02/2023 13:02:11 Negative Negative Final Mitochondria M2 Ab [Units/volume] in Serum by Immunoassay 07/02/2023 13:02:11 0.6 <4 (U/mL) Final Performing Location [facility] [place] [address] [place] [address]
--- OUTSIDE RECORDS SUMMARY | 2023-11-12 04:37 | External Medical Summary ---
Author Name Unknown Address Unknown Organization [id number]:[facility] [place] [facility] [address] [facility] [address] [facility] [address] Laboratory Report Ordering Provider Test Date Status NELLY BARTON 07/02/2023 13:02:11 Final Observation Date Value Abnormality Reference (Units) Status PARAPROTEIN NORMAL/ABNORMAL 07/02/2023 13:02:11 Normal Normal Final Protein 07/02/2023 13:02:11 6.6 6.0-8.3 (g/dL) Final Albumin/Protein.total [Pure mass fraction] in Serum or Plasma by Electrophoresis 07/02/2023 13:02:11 3.19 Below low normal 3.30-4.40 (g/dL) Final Alpha 1 globulin/Protein.tota l [Pure mass fraction] in Serum or Plasma by Electrophoresis 07/02/2023 13:02:11 0.36 Above high normal 0.10-0.30 (g/dL) Final Alpha 2 globulin/Protein.tota l [Pure mass fraction] in Serum or Plasma by Electrophoresis 07/02/2023 13:02:11 1.17 Above high normal 0.60-1.00 (g/dL) Final Beta globulin/Protein.tota l [Pure mass fraction] in Serum or Plasma by Electrophoresis 07/02/2023 13:02:11 1.07 0.80-1.30 (g/dL) Final Gamma globulin/Protein.tota l [Pure mass fraction] in Serum or Plasma by Electrophoresis 07/02/2023 13:02:11 0.81 0.70-1.70 (g/dL) Final Protein Fractions [Interpretation] in Serum or Plasma by Electrophoresis Narrative 07/02/2023 13:02:11 No paraprotein detected. Final Performing Location [facility] [place] [address] [facility] [address]
[2023-11-12] MEDS: miSOPROStoL 50 MCG TAB PO SCH (06:05)
[2023-11-12] MEDS: LEVOTHYROXINE SODIUM 25 MCG TABLET PO SCH (06:55)
--- NOTE | 2023-11-12 16:21 | Labor Progress Brief Note ---
Date of Service November 12, 2023 Assessment & Plan Admission and Anticipated Discharge Date Admission Date: November 11, 2023 Physical Exam Genitourinary: Manual OB Exam: + cervical dilation 1 cm and 2 cm, + cervical effacement 70%, + station -2 and + amniotic fluid clear OB Exam Monitor Tracing: + external FHT monitor used, + external uterine monitor used, + category I and + normal FHT variability Results & Data Vital Signs (Past 12 Hours) Vital Signs Temp Pulse Resp BP 11/12/23 16:07 103 H 136/90 11/12/23 13:02 103 H 121/82 11/12/23 13:01 36.7 C 11/12/23 10:53 18 11/12/23 10:53 36.8 C 18 11/12/23 10:51 103 H 126/88 11/12/23 06:59 36.7 C 85 16 123/62 11/12/23 06:30 18 11/12/23 06:30 18 11/12/23 06:04 96 H 113/73
[2023-11-12] MEDS: LACTATED RINGER'S 1,000 ML IV PRN (17:16)
[2023-11-12] MEDS: OXYTOCIN 30 UNITS/NSS 30 UNITS/500 ML BAG IV PRN (17:31)
[2023-11-12] MEDS ORDERED: NALBUPHINE HCL 5 MG in SYRINGE 0 ML IV PRN (17:35)
[2023-11-12] MEDS ORDERED: ePHEDrine sulfate 50 MG/ML AMP IV PRN (17:35)
[2023-11-12] MEDS ORDERED: diphenhydrAMINE 50 MG/ML VIAL IV PRN (17:35)
[2023-11-12] MEDS ORDERED: SODIUM CHLORIDE 0.9% PF INJ 10 ML VIAL EPI PRN (17:35)
[2023-11-12] MEDS ORDERED: LIDOCAINE 2% MPF LOCAL 5 ML VIAL EPI PRN (17:35)
[2023-11-12] MEDS ORDERED: fentaNYL citrate PF 100 MCG/2 ML VIAL EPI PRN (17:35)
[2023-11-12] MEDS ORDERED: NALOXONE HCL 0.4 MG/1 ML VIAL/CARP IV PRN (17:35)
[2023-11-12] MEDS ORDERED: NALOXONE HCL 1 MG in SODIUM CHLORIDE 0.9% 1,000 ML IV PRN (17:35)
[2023-11-12] MEDS ORDERED: ROPIVACAINE 0.5% PF 5 MG/ML 20 ML VIAL EPI PRN (17:35)
[2023-11-12] MEDS ORDERED: BUPIVACAINE 0.25% PF 30 ML VIAL EPI PRN (17:35)
--- NOTE | 2023-11-12 17:35 | Anesthesiology Consultation ---
Date of Service November 12, 2023 Assessment & Plan (1) Encounter for pre-operative examination: Chart Review Chart Review: Patient NOT seen in Pre Admission Testing and Acceptable Risk for Labor Epidural Consults Requested none History Height/Weight Height: 5 ft 4 in Weight: 79.832 kg Allergies Allergy/AdvReac Type Severity Reaction Status Date / Time No Known Allergies Allergy Verified 12/28/22 08:04 Medications Home Medications Medication Instructions Recorded Confirmed Last Taken levothyroxine 25 mcg tablet 25 mcg PO DAILY #30 tabs 07/05/23 11/11/23 11/11/23 05:30 ferrous sulfate 325 mg (65 mg 325 mg PO BID 11/11/23 11/11/23 11/10/23 23:00 iron) tablet (iron) vit no.95-ferrous 1 tab PO DAILY 11/11/23 11/11/23 11/10/23 14:00 fumarate 28 mg-folic acid 800 mcg tablet () Active Medications Generic Name Dose Route Start Last Admin Trade Name Freq PRN Reason Stop Dose Admin Ferrous Sulfate 325 mg 11/11/23 21:00 11/12/23 03:03 Ferrous Sulfate 325 Mg Tab PO 12/11/23 20:59 Not Given BID YOLANDA Lactated Ringer's 1,000 mls @ 150 mls/hr 11/11/23 12:32 11/12/23 17:16 Lr IV 11/13/23 12:31 999 mls/hr .Q6H40M PRN Administration L&D Protocol Protocol Oxytocin 30 units in 500 mls @ 1 mls/hr 11/12/23 14:44 11/12/23 17:31 Pitocin 30 Units/Nss IV 11/14/23 14:43 0.06 units/hr .Q24H PRN 1 mls/hr Labor Induction/Augmentation Administration Protocol 0.06 UNITS/HR Levothyroxine Sodium 25 mcg 11/12/23 06:30 11/12/23 06:55 Levothyroxine Sodium 25 Mcg Tablet PO 12/12/23 06:29 25 mcg DAILYBB YOLANDA Administration Misoprostol 50 mcg 11/12/23 04:30 11/12/23 06:05 Misoprostol 50 Mcg Tab PO 12/12/23 04:29 50 mcg Q4H YOLANDA Administration Past Medical History Medical History Anemia Hypothyroidism Past Family History Family History Grandfather (Maternal) Diabetes Uncle Myocardial infarction Prostate cancer Grandmother (Maternal) Myocardial infarction Hypothyroidism Mother Hypothyroidism Denies family history of Ovarian cancer Breast cancer Lung cancer Colorectal cancer Stroke Past Surgical History Surgical History History of wisdom tooth extraction Social History Smoking Status: Never smoker Do You Dip or Chew Tobacco: No Hx Alcohol Use: No Hx Substance Use: No Physical Exam Vital Signs Last Vital Signs Temp 98.1 F 11/12/23 17:16 Pulse 95 H 11/12/23 17:30 Resp 18 11/12/23 17:16 BP 130/91 11/12/23 17:19 Pulse Ox 97 11/12/23 17:30 Testing Laboratory Results 11/11/23 12:47
[2023-11-12] MEDS: fentANYL 2 MCG/ML BUPIVacaine 0.125%-NSS 100ML BAG EPI PRN (17:57)
[2023-11-12] MEDS: LIDOCAINE 2%/EPINEPHRINE 1:200,000 20 ML PF ONE (18:49)
[2023-11-12] MEDS: BUPIVACAINE 0.25% PF 30 ML VIAL ONE (18:49)
[2023-11-12] MEDS: PRENATAL VITAMIN 1 TAB PO SCH (18:49)
[2023-11-12] MEDS: LIDOCAINE 2%/EPINEPHRINE 1:200,000 20 ML PF EPI STA (18:50)
[2023-11-12] MEDS: BUPIVACAINE 0.25% PF 30 ML VIAL EPI STA (18:50)
[2023-11-12] MEDS: fentaNYL citrate PF 100 MCG/2 ML VIAL EPI STA (18:50)
[2023-11-12] MEDS: fentaNYL citrate PF 100 MCG/2 ML VIAL ONE (18:50)
[2023-11-12] MEDS: fentANYL 2 MCG/ML BUPIVacaine 0.125%-NSS 100ML BAG ONE (18:50)
[2023-11-12] MEDS: SODIUM CHLORIDE 0.9% PF INJ 10 ML VIAL EPI STA (18:50)
[2023-11-12] MEDS: SODIUM CHLORIDE 0.9% PF INJ 10 ML VIAL ONE (18:50)
[2023-11-12] MEDS: ePHEDrine sulfate 50 MG/ML AMP ONE (20:05)
[2023-11-12] MEDS ORDERED: OXYTOCIN 30 UNITS/NSS 30 UNITS/500 ML BAG IV PRN (23:07)
[2023-11-12] MEDS ORDERED: ACETAMINOPHEN 325 MG TAB PO PRN (23:07)
[2023-11-12] MEDS ORDERED: IBUPROFEN 600 MG TAB PO PRN (23:07)
[2023-11-12] MEDS ORDERED: HYDROCORTISONE ACETATE 25 MG SUPP PR PRN (23:07)
--- NOTE | 2023-11-12 23:12 | Delivery Summary ---
Vaginal Delivery Summary Date of Service November 12, 2023 Vaginal Delivery Summary live male RENEE over intact perineum with delayed cord clamping and nuchal cord x2 reduced at time of delivery. Placenta delivered spontaneously and intact with true cord in knot noted. First degree tear repaired with 3/0 Vicryl suture. QBL 248 ml. Final sponge, needle and instrument count are correct. Mom and baby stable.
[2023-11-13] MEDS: DIPHTHER/TETAN/PERTUS Vaccine (Tdap, Adol/Adult) 0.5mL IM ONE (00:39)
[2023-11-13] MEDS: BENZOCAINE 20% SPRY 85 APPLN/85 GM CAN EXT PRN (01:08)
--- NOTE | 2023-11-13 01:43 | Anesthesia Procedure Note ---
Date of Service November 13, 2023 Anesthesia Post Epidural Note Vital Signs Vital Signs: Temp Pulse Resp BP Pulse Ox O2 Del Method 98.1 F 93 H 18 122/77 97 Room Air 11/12/23 23:00 11/13/23 01:07 11/13/23 00:30 11/13/23 01:07 11/12/23 22:57 11/12/23 19:07 Pain Intensity Lower Medial Abdomen: Pain Intensity: 0 Notes Mental Status: alert / awake / arousable and participated in evaluation Nausea / Vomiting: adequately controlled Pain: adequately controlled Airway Patency, RR, SpO2: stable & adequate BP & HR: stable & adequate Hydration State: stable & adequate Neuraxial Anesthesia: was administered and sensory block is resolving Anesthetic Complications: no major complications apparent and Pt Satisfied with anesthetic care Epidural: Removed without complications and With tip intact
[2023-11-13 06:45] LABS: Hemoglobin 11.3 g/dl (12.0-16.0); Mean Corpuscular Hemoglobin 28.5 pg (25.0-34.0); Mean Corpuscular Hgb Conc 33.2 g/dL (32.0-36.0); Mean Corpuscular Volume 85.6 fL (80.0-100.0); Mean Platelet Volume 11.1 fL (9.4-12.4); Platelet Count 208 K/uL (130-400); RDW Coefficient of Variation 13.4 % (11.5-14.5); RDW Standard Deviation 41.8 fL (36.4-46.3); Red Blood Count 3.97 M/uL (4.20-5.40)
[2023-11-13] MEDS: PRENATAL VITAMIN 1 TAB PO SCH (08:14)
[2023-11-13] MEDS: DOCUSATE SODIUM 100 MG CAP PO SCH (08:14)
[2023-11-13] MEDS: FERROUS SULFATE 325 MG TAB PO SCH (08:14)
--- NOTE | 2023-11-13 08:26 | Labor Progress Brief Note ---
Date of Service November 13, 2023 Subjective doing well passing gas OOB Assessment & Plan Admission and Anticipated Discharge Date Admission Date: November 11, 2023 Physical Exam Constitutional: WD/WN, vitals as above Gastrointestinal (Abdomen): Inspection/Auscultation: abdomen normal to inspection abdomen soft and non-tender. fundus firm below U Musculoskeletal: Extremities: extremities normal to inspection Skin: no rashes, warm and dry Neurologic: patellar DTR's 2+ bilat, sensation intact Psychiatric: A+Ox3, euthymic affect Results & Data Vital Signs (Past 12 Hours) Vital Signs Temp Pulse Pulse Resp BP BP Pulse Ox 11/13/23 04:20 37.0 C 101 H 18 123/82 97 11/13/23 01:25 37.0 C 102 H 18 122/77 98 11/13/23 01:25 11/13/23 01:07 93 H 122/77 11/13/23 01:00 37.0 C 18 11/13/23 01:00 98 H 120/63 11/13/23 00:45 94 H 111/57 L 11/13/23 00:30 18 11/13/23 00:30 96 H 122/72 11/13/23 00:15 103 H 116/73 11/13/23 00:00 18 11/13/23 00:00 109 H 132/60 11/12/23 23:45 18 11/12/23 23:45 92 H 121/69 11/12/23 23:30 18 11/12/23 23:30 106 H 121/64 11/12/23 23:15 18 11/12/23 23:15 100 H 126/66 11/12/23 23:05 105 H 135/83 11/12/23 23:00 36.7 C 18 11/12/23 22:57 97 H 97 11/12/23 22:52 109 H 98 11/12/23 22:47 120 H 98 11/12/23 22:42 107 H 99 11/12/23 22:37 102 H 97 11/12/23 22:32 106 H 96 11/12/23 22:30 18 11/12/23 22:30 18 11/12/23 22:27 106 H 98 11/12/23 22:22 101 H 96 11/12/23 22:17 102 H 96 11/12/23 22:16 104 H 128/79 11/12/23 22:12 103 H 96 11/12/23 22:07 104 H 95 11/12/23 22:02 101 H 96 11/12/23 22:00 18 11/12/23 22:00 18 11/12/23 21:57 95 H 96 11/12/23 21:52 101 H 95 11/12/23 21:47 95 11/12/23 21:47 107 H 11/12/23 21:47 94 H 141/86 H 11/12/23 21:42 103 H 96 11/12/23 21:37 91 H 95 11/12/23 21:34 100 H 94 11/12/23 21:32 101 H 95 11/12/23 21:31 91 H 124/75 11/12/23 21:30 18 11/12/23 21:30 18 11/12/23 21:30 18 11/12/23 21:30 36.7 C 18 11/12/23 21:27 96 H 95 11/12/23 21:22 95 11/12/23 21:22 88 11/12/23 21:22 84 94 11/12/23 21:17 95 11/12/23 21:17 92 H 11/12/23 21:17 91 H 115/68 11/12/23 21:15 84 94 11/12/23 21:12 86 95 11/12/23 21:07 90 96 11/12/23 21:02 95 11/12/23 21:02 86 11/12/23 21:02 82 113/71 11/12/23 21:00 16 11/12/23 21:00 16 11/12/23 20:57 99 H 96 11/12/23 20:52 81 95 11/12/23 20:47 96 11/12/23 20:47 87 11/12/23 20:47 99 H 94 11/12/23 20:46 83 106/66 11/12/23 20:42 79 95 11/12/23 20:37 92 H 95 11/12/23 20:32 82 95 11/12/23 20:31 91 H 106/65 94 11/12/23 20:30 18 11/12/23 20:30 18 11/12/23 20:27 78 95 O2 Del Method 11/13/23 04:20 Room Air 11/13/23 01:25 Room Air 11/13/23 01:25 Room Air 11/13/23 01:07 11/13/23 01:00 11/13/23 01:00 11/13/23 00:45 11/13/23 00:30 11/13/23 00:30 11/13/23 00:15 11/13/23 00:00 11/13/23 00:00 11/12/23 23:45 11/12/23 23:45 11/12/23 23:30 11/12/23 23:30 11/12/23 23:15 11/12/23 23:15 11/12/23 23:05 11/12/23 23:00 11/12/23 22:57 11/12/23 22:52 11/12/23 22:47 11/12/23 22:42 11/12/23 22:37 11/12/23 22:32 11/12/23 22:30 11/12/23 22:30 11/12/23 22:27 11/12/23 22:22 11/12/23 22:17 11/12/23 22:16 11/12/23 22:12 11/12/23 22:07 11/12/23 22:02 11/12/23 22:00 11/12/23 22:00 11/12/23 21:57 11/12/23 21:52 11/12/23 21:47 11/12/23 21:47 11/12/23 21:47 11/12/23 21:42 11/12/23 21:37 11/12/23 21:34 11/12/23 21:32 11/12/23 21:31 11/12/23 21:30 11/12/23 21:30 11/12/23 21:30 11/12/23 21:30 11/12/23 21:27 11/12/23 21:22 11/12/23 21:22 11/12/23 21:22 11/12/23 21:17 11/12/23 21:17 11/12/23 21:17 11/12/23 21:15 11/12/23 21:12 11/12/23 21:07 11/12/23 21:02 11/12/23 21:02 11/12/23 21:02 11/12/23 21:00 11/12/23 21:00 11/12/23 20:57 11/12/23 20:52 11/12/23 20:47 11/12/23 20:47 11/12/23 20:47 11/12/23 20:46 11/12/23 20:42 11/12/23 20:37 11/12/23 20:32 11/12/23 20:31 11/12/23 20:30 11/12/23 20:30 11/12/23 20:27 Laboratory Results 11/11/23 11/13/23 12:47 06:27 WBC 10.54 19.70 H RBC 4.43 3.97 L Hgb 12.7 11.3 L Hct 37.8 34.0 L MCV 85.3 85.6 MCH 28.7 28.5 MCHC 33.6 33.2 RDW Std Deviation 42.1 41.8 RDW Coeff of Angel 13.6 13.4 Plt Count 228 208 MPV 11.3 11.1
[2023-11-13] MEDS: bisacodyL 5 MG TABEC PO SCH (19:59)
[2023-11-14] MEDS ORDERED: bisacodyL 10 MG SUPP PR PRN
[2023-11-14 06:36] LABS: Basophils # (auto) 0.05 K/uL (0.00-0.20); Basophils % (auto) 0.3 %; Eosinophils # (auto) 0.13 K/uL (0.00-0.50); Eosinophils % (auto) 0.8 %; Hematocrit (blood only) 32.2 % (37.0-47.0); Hemoglobin 10.6 g/dl (12.0-16.0); Immature Granulocytes # (auto) 0.36 K/uL (0.01-0.20); Immature Granulocytes % (auto) 2.1 %; Lymphocytes # (auto) 2.22 K/uL (1.20-3.40); Lymphocytes % (auto) 12.9 %; Mean Corpuscular Hemoglobin 28.6 pg (25.0-34.0); Mean Corpuscular Hgb Conc 32.9 g/dL (32.0-36.0); Monocytes # (auto) 1.67 K/uL (0.11-0.59); Monocytes % (auto) 9.7 %; Neutrophils # (auto) 12.75 K/uL (1.40-6.50); Neutrophils % (auto) 74.2 %; Platelet Count 205 K/uL (130-400); RDW Coefficient of Variation 14.1 % (11.5-14.5); RDW Standard Deviation 44.5 fL (36.4-46.3); White Blood Count 17.18 K/ul (4.8-10.8)
--- NOTE | 2023-11-14 07:51 | Obstetrical Progress Note ---
Date of Service November 14, 2023 Assessment & Plan Admission and Anticipated Discharge Date Admission Date: November 11, 2023 Subjective Patient is seen and examined. She feels well, no complaints. Ambulating without dizziness Voiding without difficulty Tolerating regular diet with out N&V Bleeding is minimal No fever/ chills/ CP/ SOB/ N&V/ Leg pain Breast feeding without problems Vital Signs Temp Pulse Resp BP Pulse Ox O2 Del Method 11/13/23 22:49 36.9 C 99 H 18 125/87 96 Room Air 11/13/23 20:00 36.9 C 107 H 18 117/78 97 Room Air Vital Signs Temp Pulse Pulse Resp BP Pulse Ox O2 Del Method 11/13/23 22:49 36.9 C 99 H 18 125/87 96 Room Air 11/13/23 20:00 36.9 C 107 H 18 117/78 97 Room Air 11/13/23 15:20 37.0 C 114 H 16 124/76 11/13/23 13:10 37.0 C 98 H 18 118/76 Room Air 11/13/23 08:00 37.1 C 97 H 18 123/78 Room Air Lab Results 11/11/23 11/13/23 11/14/23 Range/Units 12:47 06:27 06:14 WBC 10.54 19.70 H 17.18 H (4.8-10.8) K/ul RBC 4.43 3.97 L 3.70 L (4.20-5.40) M/uL Hgb 12.7 11.3 L 10.6 L (12.0-16.0) g/dl Hct 37.8 34.0 L 32.2 L (37.0-47.0) % MCV 85.3 85.6 87.0 (80.0-100.0) fL MCH 28.7 28.5 28.6 (25.0-34.0) pg MCHC 33.6 33.2 32.9 (32.0-36.0) g/dL RDW Std Deviation 42.1 41.8 44.5 (36.4-46.3) fL RDW Coeff of Angel 13.6 13.4 14.1 (11.5-14.5) % Plt Count 228 208 205 (130-400) K/uL MPV 11.3 11.1 11.0 (9.4-12.4) fL Immature Gran % (Auto) 2.1 % Neut % (Auto) 74.2 % Lymph % (Auto) 12.9 % Floyd % (Auto) 9.7 % Eos % (Auto) 0.8 % Baso % (Auto) 0.3 % Neut # (Auto) 12.75 H (1.40-6.50) K/uL Lymph # (Auto) 2.22 (1.20-3.40) K/uL Floyd # (Auto) 1.67 H (0.11-0.59) K/uL Eos # (Auto) 0.13 (0.00-0.50) K/uL Baso # (Auto) 0.05 (0.00-0.20) K/uL Immature Gran # (Auto) 0.36 H (0.01-0.20) K/uL PE: General: Alert, orientedx3, NAD Abd: soft, NT, fundus firm, below Umbilicus Perineum intact, Lochia rubra minimal Ext; NT, no edema AP: 23 yo s/p , ppd# 2 VSS Afebrile doing well Continue routine care All questions were answered D/C home , f/u in office Results & Data Vital Signs (Past 12 Hours) Vital Signs Temp Pulse Resp BP Pulse Ox O2 Del Method 11/13/23 22:49 36.9 C 99 H 18 125/87 96 Room Air 11/13/23 20:00 36.9 C 107 H 18 117/78 97 Room Air
== END 2023-11-14 10:45 | disposition home health service (06) | DRG 807 ==
LOC: 4S1 11:16 → 4E2 11-13 01:20